=== PATIENT | male | born 1970 ===

== ENCOUNTER 2023-02-21 10:05 | Outpatient (AMB) | payer OTHER, SELFPAY ==
--- NOTE | 2023-02-21 10:16 | MHC.PC.OV ---
Vital Signs 02/21/23 10:22 Height 5 ft 10 in Weight 178 lb 6 oz BMI 25.6 BP 110/70 Blood Pressure Location Lt brachial Position Sitting Pulse 78 Pulse Source Pulse Oximeter Pulse Oximetry (%) 94 Oxygen Delivery Method Room Air Intake Visit Reasons: New patient-diabetes,depression,anxiety Intake Note: Patient is a new patient here to establish care for Diabetes, Glaucoma, Anger Issue, Depression, Anxiety, Cholesterol, Chronic Bilateral knee pain and Chronic back pain . Transferring care from [facility] ([place], [place]). Medical records have not been requested and have not received. Photographic Intelligence Officer Required: No Tool Radial Drill Press Set Up Operator: Not Required per policy Accompanied by: Self / Same As Patient Allergies No Known Allergies Allergy (Verified 02/21/23 10:42) Tobacco use date assessed: 02/21/23 Dental Screening Dental Screen Date: 02/21/23 Did you have a dental visit in the last 12 months?: No Did you have a dental problem in the last 6 months where you did not have access to dental care?: No Was dental information given to patient?: No HPI HPI Comments History of Present Illness Details 52-year-old male new patient presents today to establish care past medical history significant for type 2 diabetes mellitus, generalized anxiety disorder, depression, chronic lumbar back pain and chronic bilateral knee pain. Patient reports was previously followed by Psychiatry for anxiety depression and history anger problems. Patient states he was on medication in the past however he cannot remember the name of these and states he discontinued taking any medication for and June. Patient also reports symptoms of polyuria and polydipsia will obtain complete fasting blood work to further hemoglobin A1c and fasting glucose. Patient states he ambulates with a Rollator walker and cane. Patient states his Rollator walker broke while he was moving and is requesting a prescription for this. Prescription for related walker handed to patient in office today. Patient reports previously using the freestyle Ambika meter however his broke and requesting new prescription for this Patient reports had colon cm reports that was unremarkable. 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 Patient completed medical release for to obtain previous medical records from PCP in [place]. [facility] Medical History (Updated 02/21/23 @ 13:15 by ANITA Duong) Suicidal ideation Excessive anger Glaucoma GERD (gastroesophageal reflux disease) Surgical History No pertinent past surgical history Family History (Updated 02/21/23 @ 10:50 by ANITA Duong) Father Diabetes Prostate cancer Mother History of stroke Diabetes Social History (Updated 02/21/23 @ 10:50 by ANITA Duong) Housing: Apartment Alcohol intake: current Alcohol intake frequency: a few times a week Alcohol type: beer Patient Tobacco Use Status: Current everyday Tobacco user (chewing tobacco) e-Cigarette/Vaping Use: Never Used Second Hand Smoke Exposure: Yes service: No Current occupational status: disabled Cognitive needs: Yes (wheelchair, cane) Hearing needs: No Vision needs: Yes (glasses) Questionnaire PHQ-9 Over the last 2 weeks, how often have you been bothered by any of the following problems? 1. Little interest or pleasure in doing things: not at all 2. Feeling down, depressed, or hopeless: more than half the days 3. Trouble falling or staying asleep, or sleeping too much: nearly every day (falling asleep and staying asleep) 4. Feeling tired or having little energy: nearly every day 5. Poor appetite or overeating: several days 6. Feeling bad about yourself - or that you are a failure or have let yourself or your family down: nearly every day 7. Trouble concentrating on things, such as reading the newspaper or watching television: nearly every day 8. Moving or speaking so slowly that other people could have noticed. Or the opposite - being so fidgety or restless that you have been moving around a lot more than usual: not at all 9. Thoughts that you would be better off or of hurting yourself in some way: not at all Total score: 15 Depression Screening Interpretation: Positive (referral entered to psych ) Depression Screening Done: Yes 19452 - PHQ-9 Billing: Yes Source: Developed by Drs. Zi Hidalgo, Nishi Samuel, Dariusz Robbins and colleagues, with an educational radha from [employer]. Thrive Questionnaire Date Thrive assessed: 02/21/23 I am a: Patient What is your living situation today?: I have a steady place to live Within the past 12 months, did the food you bought not last and you didn't have the money to get more?: Never true Within the past 12 months, did you worry whether your food would run out before you got money to buy more?: Never true Do you have trouble paying for medicines?: Yes Do you have trouble getting transportation to medical appointments?: Yes Do you have trouble paying your heating and electricity bill?: No Do you have trouble taking care of your child, family member or friend?: No Do you have trouble with day-to-day activities such as bathing, preparing meals, shopping, managing finances, etc.?: No Are you currently unemployed and looking for a job?: No Are you interested in more education?: No Please select the resources that you would like help with: Paying for medicine and Transportation Currently or been in a relationship where the following occur: no concerns reported AUDIT C Alcohol Use Questionnaire (AUDIT-C) 1. How often do you have a drink containing alcohol?: Never Total Score: 0 TEMI-7 AMB Questionnaire TEMI-7 Date TEMI - 7 assessed: 02/21/23 Feeling nervous, anxious, or on edge: 1 = Several days Not being able to stop or control worryin = Nearly every day Worrying too much about different things: 3 = Nearly every day Trouble relaxin = Nearly every day Being so restless that it is hard to sit still: 2 = More than half the days Becoming easily annoyed or irritable: 3 = Nearly every day Feeling afraid as if something awful might happen: 1 = Several days Total TEMI-7 score (0-4 normal; 5-9 mild; 10-14 moderate; 15-21 severe): 16 Source: Developed by Drs. Zi Hidalgo, Nishi Samuel, Dariusz Robbins and colleagues, with an educational radha from [employer]. TEMI-7 Assessment Billing TEMI-7 Assessment Tool: TEMI-7 Assessment 04307 Review of Systems Const Denies chills, Denies fatigue, Denies fever(s) and Denies poor appetite Eyes Denies no additional complaints ENT Reports Normal hearing present Card Denies chest pain, Denies syncope, Denies rapid heart rate and Denies dyspnea Resp Denies cough and Denies dyspnea GI Denies change in stool character, Denies constipation, Denies diarrhea, Denies nausea and Denies vomiting Denies dysuria, Denies urinary frequency and Denies urinary urgency Neuro Reports Normal hearing present, Denies confusion and Denies syncope Psych Denies confusion Endo Denies fatigue Physical exam (Primary Care) Vital Signs: Last Vital Signs Pulse 78 02/21/23 10:22 BP 110/70 02/21/23 10:22 Pulse Ox 94 02/21/23 10:22 Oxygen Delivery Method Room Air 02/21/23 10:22 BMI result Body Mass Index 25.6 Tobacco/Smoking Status: Tobacco use Status Tobacco use date assessed 02/21/23 02/21/23 10:19 Patient Tobacco Use Status Current everyday Tobacco ( 02/21/23 10:50 chewing tobacco) e-Cigarette/Vaping Use Never Used 02/21/23 10:50 PHQ-9: PHQ-9 Score PHQ-9: Total score 15 02/21/23 10:52 Depression Screening Interpretation: Positive (referral entered to psych ) Thrive Assessment: Date of Thrive Assessment Date Thrive assessed 02/21/23 02/21/23 10:19 Currently or been in a relationship where the following occur: no concerns reported Const General: No confusion Orientation/consciousness: No confusion HENMT Head: Yes normocephalic and Yes atraumatic Eyes Conjunctivae: conjunctivae normal Chest Chest palpation & inspection: normal inspection of the chest Resp Effort & Inspection: normal respiratory effort Auscultation: clear to auscultation bilaterally, no crackles, no rhonchi and no wheezes Cardio Rate: regular rate Rhythm: regular rhythm Heart sounds: S1 normal heart sound present and S2 normal heart sound present GI Inspection: Yes normal to inspection Neuro General: No confusion Cranial nerves: Yes Normal hearing present Extrem General: No edema Assessment and Plan Assessment & Plan (1) Type 2 diabetes mellitus: Code(s): E11.9 - Type 2 diabetes mellitus without complications Plan: Continue on metformin 100 mg b.i.d., insulin lispro 6 units daily and Lantus 40 units BID. hgb A1c and fasting glucose ordered. (2) Polyuria: Code(s): R35.89 - Other polyuria (3) Generalized anxiety disorder: Code(s): F41.1 - Generalized anxiety disorder Plan: Referral entered to Psychiatry. (4) Depression: Code(s): F32.A - Depression, unspecified Plan Follow-up in 3 months for complete physical exam. Orders: Orders Comprehensive [place]. Panel Fast Today E11.9 - Type 2 diabetes mellitus without complications TSH reflex Free T4 Today Z13.29 - Encounter for screening for other suspected endocrine disorder Hemoglobin A1c Today E11.9 - Type 2 diabetes mellitus without complications PSA,Total (Free>4and<10) Today Z12.5 - Encounter for screening for malignant neoplasm of prostate UA CC w/rflx Micro + Cult Today R35.89 - Other polyuria Complete Blood Count Auto Diff Today Z13.0 - Encounter for screening for diseases of the blood and blood-forming organs and certain disorders involving the immune mechanism Lipid Panel Today Z13.220 - Encounter for screening for lipoid disorders Referrals Ophthalmology Referral H40.9 - Unspecified glaucoma Psychiatry Referral F32.A - Depression, unspecified, F41.1 - Generalized anxiety disorder, R45.4 - Irritability and anger Medications: New flash glucose scanning reader (FreeStyle Ambika 2 [place]) As directed 1 ea 0RF flash glucose sensor (FreeStyle Ambika 2 Sensor kit) As directed 1 ea 10RF miscellaneous medical supply Rollator walker 1 ea miscellaneous ONCE 1 ea 0RF G89.29 - Other chronic pain, M25.569 - Pain in unspecified knee, M54.50 - Low back pain, unspecified Coding Level of Care Code New Pt Level 4 (98692) Diagnoses Type 2 diabetes mellitus E11.9 Polyuria R35.89 Generalized anxiety disorder F41.1 Depression F32.A Additional Codes TEMI-7 Assessment Billing - TEMI-7 Assessment Tool: TEMI-7 Assessment 00862 ([id number])
[2023-02-21 10:22] VITALS: BP 110/70; PULSE 78; O2SAT 94; BMI 25.6
== END 2023-02-21 11:11 | disposition home or self-care (01) ==
PROVIDERS: PCP Nurse Practitioner Family; Visit Provider Nurse Practitioner Family
DX: E11.9 Type 2 diabetes mellitus without complications (principal); R35.89 Other polyuria; F41.1 Generalized anxiety disorder; F32.A Depression, unspecified
CPT/HCPCS: 96127; 99204

== ENCOUNTER 2023-02-22 10:41 | Outpatient (REF) | payer OTHER, SELFPAY ==
[2023-02-22 11:06] LABS: MANUAL DIFF FLAG NO
[2023-02-22 11:24] LABS: Appearance Urine Clear; Color Urine Yellow; Glucose Urine UA >=1000 mg/dL (Negative); Leukocyte Esterase Urine Negative (Negative); Nitrite Urine Negative (Negative); PH 5.5 (5.0-9.0); Specific Gravity - Urine >= 1.030 (1.005-1.025); UMIC TRIGGER UACC YES; Urine Blood Negative (Negative); Urine Ketones Trace mg/dL (Negative); Urine Protein Negative (Neg-Trace)
[2023-02-22 11:26] LABS: Basophils Percent Auto 0.4 % (0-2); Eosinophils Absolute Auto 0.2 X10*3/uL (0.0-0.4); Hematocrit 45.1 % (42.0-52.0); Hemoglobin 15.7 g/dl (14.0-18.0); Lymphocytes Absolute Auto 2.3 X10*3/uL (1.2-4.9); Mean Corpuscular HGB Conc 34.8 g/dl (31.0-36.0); Mean Corpuscular Hemoglobin 29.4 pg (27.0-33.0); Mean Corpuscular Volume 84.5 fL (80.0-98.0); Mean Platelet Volume 10.4 fL (9.4-12.4); Monocytes Absolute Auto 0.4 X10*3/uL (0.1-1.2); Monocytes Percent Auto 6.3 % (2-11); Neutrophils Absolute Auto 2.6 x10*3/uL (2.0-8.3); Neutrophils Percent Auto 47.3 % (45-73); Platelet Count 244 X10*3/uL (160-400); Red Blood Count 5.34 X10*6/uL (4.60-5.80); White Blood Count 5.5 X10*3/uL (4.8-10.8)
[2023-02-22 11:33] LABS: Bacteria Urine None Seen (None Seen); Hyaline Casts Urine 0-2 /LPF (0-2); RBC Urine 0-2 /HPF (0-2); Squamous Epithelial Cell Urine 0-2 /HPF (0-2); WBC Urine 0-5 /HPF (0-5)
[2023-02-22 11:53] LABS: Hemoglobin A1c % > 14.0 % (<6.0)
[2023-02-22 14:25] LABS: Alanine Aminotransferase 15 U/L (0-40); Albumin Level 4.3 g/dL (3.5-5.0); Alkaline Phosphatase 125 U/L (39-117); Anion Gap 15 (12-20); Aspartate Amino Transferase 15 U/L (5-37); Bilirubin Total 0.5 mg/dL (0.0-1.0); Blood Urea Nitrogen 11 mg/dL (9-16); Calcium 9.7 mg/dL (8.4-10.2); Carbon Dioxide 25 mmol/L (22-29); Chloride 102 mmol/L (96-108); Cholesterol 260 mg/dL (<200); Estimated Glomerular Filt Rate > 60; Glucose Fasting 329 mg/dL (60-99); HDL Cholesterol 55 mg/dL (>40); LDL Cholesterol Calculated 165 mg/dL (<100); Sodium 138 mmol/L (135-145); Total Protein 7.5 g/dL (6.5-8.0); Triglycerides 203 mg/dL (<150)
[2023-02-22 14:34] LABS: TSH reflex Free T4 0.89 uIU/mL (0.32-4.0)
[2023-02-22 14:36] LABS: PSA,Total (Free>4and<10) 0.71 ng/mL (0.00-4.00)
== END 2023-02-22 10:42 | disposition home or self-care (01) ==
LOC: HO.LAB 10:41
PROVIDERS: PCP Nurse Practitioner Family; Visit Provider Nurse Practitioner Family
DX: Z13.29 Encounter for screening for other suspected endocrine disorder (principal); Z12.5 Encounter for screening for malignant neoplasm of prostate; Z13.0 Encounter for screening for diseases of the blood and blood-forming organs and certain disorders involving the immune mechanism; Z13.220 Encounter for screening for lipoid disorders; E11.9 Type 2 diabetes mellitus without complications
CPT/HCPCS: 36415; 80053; 80061; 81001; 83036; 84153; 84443; 85025

== ENCOUNTER 2023-03-21 10:58 | Emergency (ER) | payer OTHER, SELFPAY ==
--- NOTE | ~2023-03-21 | CT_ITS ---
EXAMINATION: CT HEAD WITHOUT CONTRAST CLINICAL INFORMATION: Headache and dizziness COMPARISON: None available. TECHNIQUE: Contiguous axial imaging was performed from the skull base to vertex without intravenous administration of contrast. This CT examination was performed using dose optimization techniques as appropriate, variously including the following: *Automated exposure control *Adjustment of mA and/or kV according to patient size (this includes techniques or standardized protocols for targeted exams where dose is matched to indication/reason for exam; i.e. extremities or head) *Use of iterative reconstruction technique DLP: 661.0 mGy-cm FINDINGS: There is no evidence of acute intracranial hemorrhage or territorial infarction. Smith-white matter differentiation is preserved. No abnormal mass effect or midline shift. No extra-axial fluid collections. Scattered periventricular and deep white matter hypoattenuation consistent with mild microangiopathy. The ventricles and sulcal spaces are proportional without hydrocephalus. There is rhaj-ut-qvhubqlz volume loss with proportional prominence of the ventricles and sulcal spaces. No hydrocephalus. No acute osseous or soft tissue abnormalities. The mastoid air cells and visualized portions of the paranasal sinuses are well aerated. CT/CT head/brain wo IV con IMPRESSION: No acute intracranial pathology.
[2023-03-21 11:09] VITALS: BP 132/93; PULSE 73; RESP 18; TEMP 36.6; O2SAT 98; BMI 24.8
--- NOTE | 2023-03-21 11:10 | ED.GENADULT ---
HPI - General Adult General Chief complaint: Dizziness Stated complaint: diabetic, low sugars, nausea, hx of heart attacks Time Seen by Provider: 03/21/23 11:39 Source: patient Mode of arrival: ambulatory History of Present Illness HPI narrative: Patient with a history of stroke, has an episode of room spinning with nausea. Related Data Home Medications Medication Instructions Recorded Confirmed insulin glargine 100 unit/mL (3 40 unit subcut BID 02/21/23 mL) subcutaneous pen (Lantus Solostar U-100 Insulin) insulin lispro 100 unit/mL 6 unit subcut DAILY 02/21/23 subcutaneous pen Previous Rx's Medication Instructions Recorded miscellaneous medical supply 1 ea miscellaneous ONCE #1 ea 02/21/23 metformin 500 mg tablet 1,000 mg (2 x 500 mg) PO BID #60 02/24/23 tabs flash glucose scanning reader #1 ea 03/03/23 (FreeStyle Ambika 2 [place]) flash glucose sensor (FreeStyle #1 ea 03/03/23 Ambika 2 Sensor kit) cane #1 ea 03/19/23 walker (Ultra-Light Rollator misc) #1 ea 03/19/23 meclizine 25 mg tablet 25 mg PO TID #20 tabs 03/21/23 Allergies Allergy/AdvReac Type Severity Reaction Status Date / Time No Known Allergies Allergy Verified 03/21/23 11:08 Review of Systems Neurologic: Denies Sensory deficit (Neuro) [facility] Past Medical History Medical History (Updated 03/21/23 @ 16:04 by Rolando Weinberg MD) Suicidal ideation Excessive anger Glaucoma GERD (gastroesophageal reflux disease) Surgical History No pertinent past surgical history Family History Family History (Updated 02/21/23 @ 10:50 by ANITA Duong) Father Diabetes Prostate cancer Mother History of stroke Diabetes Social History Social History (Updated 02/21/23 @ 10:50 by ANITA Duong) Housing: Apartment Alcohol intake: current Alcohol intake frequency: holidays/special occasions only Alcohol type: beer Patient Tobacco Use Status: Current everyday Tobacco user (chewing tobacco) Smoked in Last 30 Days: No e-Cigarette/Vaping Use: Never Used Second Hand Smoke Exposure: Yes Use of substances other than those prescribed or required for medical reasons: No Advance Directives: No Advance Directives Information Provided: Yes service: No Current occupational status: disabled Cognitive needs: Yes (wheelchair, cane) Hearing needs: No Vision needs: Yes (glasses) Physical Exam ED Vital Signs: Vital Signs - 24 hr 03/21/23 11:09 03/21/23 12:01 03/21/23 14:35 Temperature 97.8 F Pulse Rate 73 67 55 Respiratory Rate 18 20 18 Blood Pressure 132/93 H 128/80 115/76 Pulse Oximetry 98 95 98 Oxygen Delivery Method Room Air Room Air Room Air BMI result Body Mass Index 24.8 Const General: healthy appearing Nutritional Appearance: average body habitus Orientation/consciousness: oriented to person and patient oriented x3 Limitations: no limitations HENMT Other: Tms normal bilaterally Head: Yes normal to inspection Ears: external ears normal General nose exam: Normal external nose present Mouth: Normal oral and palatal mucosa present and oropharynx normal Throat: Yes posterior oropharynx normal Eyes Other: nystagmus on Right latera gaze only with symptoms General: appearance normal, both eyes and all related structures Neck Neck: Yes normal visual inspection Chest Chest palpation & inspection: normal inspection of the chest Resp Auscultation: clear to auscultation bilaterally Cardio Jugular venous distension: no JVD Rate: regular rate Rhythm: regular rhythm Heart sounds: S1 normal heart sound present and S2 normal heart sound present GI Inspection: Yes normal to inspection Palpation (GI): Soft to palpation, nontender and No hepatosplenomegaly present Auscultation: normal bowel sounds General: Yes no CVA tenderness Back/Spine/Pelvis Back: no CVA tenderness Skin General skin exam: no rashes or lesions noted Neuro General: oriented to person and patient oriented x3 Cranial nerves: Yes CN's II-XII intact bilaterally Motor exam (neuro): 5/5 motor strength present throughout Sensory Exam: No Sensory deficit (Neuro) Extrem General: Yes normal to inspection Psych Appearance: grossly normal Course Course Course Narrative: This is an RME: Additional HPI, ROS, PE not included below will be deferred to primary provider. Patient is a 52 year old male who presents to the ED for evluation of dizziness. Reports he went to sleep at 2300, asymptomatic, awoke at 0300 with dizziness, feeling unsteady and having room spinning sensation that is worse with head movement. Reports diffuse frontal headache, baseline blurred vision due to glaucoma (unchanged), nausea, vomiting, upper chest pain. Denies fevers, chills, neck pain, SOB, fall or injury Plan: labs, EKG, POC glucose, CT head Reevaluation(s) Reevaluation #1: Patient with vertigo, negative head CT, elevated glucose, will give insulin, hydrate and dc home Time: 13:58 Medications Administered Discontinued Medications Generic Name Dose Route Start Last Admin Trade Name Waqas PRN Reason Stop Dose Admin Sodium Chloride 1,000 mls @ 500 mls/hr 03/21/23 14:00 03/21/23 14:34 Ns IVCONT 03/21/23 15:59 500 mls/hr .Q2H CHASE Administration Insulin Human Lispro 10 unit 03/21/23 13:45 03/21/23 14:28 Insulin Lispro 100 Unit/Ml 3 Ml Vial SUBCUT 03/21/23 13:46 10 unit ONCE ONE Administration Meclizine HCl 50 mg 03/21/23 11:47 03/21/23 12:03 Meclizine Hcl 25 Mg Tablet PO 03/21/23 11:48 50 mg ONCE ONE Administration Medical Decision Making Differential Diagnosis Differential Diagnoses: The differential diagnosis associated with the presentation includes (CVA, vertigo, brain tumor, cerebral bleed) Admission/Observation Consideration of admission/observation: Escalation of care including admission/observation considered (upon arrival patient was considered for admission) Lab Data MDM Lab Attestation statement: I reviewed the patient's lab results. (elevated urine, concentrated urine) 03/21/23 12:29 03/21/23 12:29 Labs: Lab Results 03/21/23 03/21/23 03/21/23 Range/Units 12:07 12:24 12:25 WBC (4.8-10.8) X10*3/uL RBC (4.60-5.80) X10*6/uL Hgb (14.0-18.0) g/dl Hct (42.0-52.0) % MCV (80.0-98.0) fL MCH (27.0-33.0) pg MCHC (31.0-36.0) g/dl RDW (11.0-16.0) % Plt Count (160-400) X10*3/uL MPV (9.4-12.4) fL Immature Gran % (Auto) (0.0-0.4) % Neut % (Auto) (45-73) % Lymph % (Auto) (20-40) % [place] % (Auto) (2-11) % Eos % (Auto) (0-4) % Baso % (Auto) (0-2) % Lymph # (Auto) (1.2-4.9) X10*3/uL [place] # (Auto) (0.1-1.2) X10*3/uL Eos # (Auto) (0.0-0.4) X10*3/uL Baso # (Auto) (0.0-0.2) X10*3/uL Abs Immat Gran (auto) (0.00-0.03) X10*3/uL Absolute Neuts (auto) (2.0-8.3) x10*3/uL Absolute Nucleated RBC (0.0-0.012) X10*3/uL Nucleated RBC % (auto) (0.0-0.2) /100WBC VBG pH (7.32-7.43) VBG pCO2 mmHg VBG pO2 mmHg VBG HCO3 (22-26) mmol/L VBG O2 Saturation % VBG Base Excess mmol/L Sodium (135-145) mmol/L Potassium (3.3-5.1) mmol/L Chloride (96-108) mmol/L Carbon Dioxide (22-29) mmol/L Anion Gap (12-20) BUN (9-16) mg/dL Creatinine (0.5-1.4) mg/dL Estim Creat Clear Calc Estimated GFR POC Glucose 323 H (60-115) mg/dL Random Glucose (60-115) mg/dL Calcium (8.4-10.2) mg/dL Total Bilirubin (0.0-1.0) mg/dL AST (5-37) U/L ALT (0-40) U/L Alkaline Phosphatase (39-117) U/L Troponin I High Sens (<3.5-35.0) ng/L Total Protein (6.5-8.0) g/dL Albumin (3.5-5.0) g/dL Lipase (8-78) U/L Beta-Hydroxybutyrate (0.02-0.27) mmol/L Urine Color Yellow Urine Appearance Clear Urine pH 6.0 (5.0-9.0) Ur Specific [place] >= 1.030 H (1.005-1.025) Urine Protein Negative (Neg-Trace) mg/dL Urine Glucose (UA) >=1000 H (Negative) mg/dL Urine Ketones 15 (Negative) mg/dL Urine Blood Negative (Negative) Urine Nitrite Negative (Negative) Ur Leukocyte Esterase Negative (Negative) Urine RBC 0-2 (0-2) /HPF Urine WBC 0-5 (0-5) /HPF Ur Squamous Epith Cells 0-2 (0-2) /HPF Urine Bacteria None Seen (None Seen) Hyaline Casts 0-2 (0-2) /LPF COVID-19 (SHARON) Negative (Negative) COVID-19 Clin Com See Note Influenza Type A (YASH) Negative (Negative) Influenza Type B (YASH) Negative (Negative) Influenza A & B Note See Note 03/21/23 03/21/23 03/21/23 Range/Units 12:29 12:32 15:00 WBC 6.7 (4.8-10.8) X10*3/uL RBC 5.53 (4.60-5.80) X10*6/uL Hgb 15.7 (14.0-18.0) g/dl Hct 44.7 (42.0-52.0) % MCV 80.8 (80.0-98.0) fL MCH 28.4 (27.0-33.0) pg MCHC 35.1 (31.0-36.0) g/dl RDW 11.8 (11.0-16.0) % Plt Count 254 (160-400) X10*3/uL MPV 9.6 (9.4-12.4) fL Immature Gran % (Auto) 0.1 (0.0-0.4) % Neut % (Auto) 68.3 (45-73) % Lymph % (Auto) 25.9 (20-40) % [place] % (Auto) 4.0 (2-11) % Eos % (Auto) 1.3 (0-4) % Baso % (Auto) 0.4 (0-2) % Lymph # (Auto) 1.7 (1.2-4.9) X10*3/uL [place] # (Auto) 0.3 (0.1-1.2) X10*3/uL Eos # (Auto) 0.1 (0.0-0.4) X10*3/uL Baso # (Auto) 0.0 (0.0-0.2) X10*3/uL Abs Immat Gran (auto) 0.01 (0.00-0.03) X10*3/uL Absolute Neuts (auto) 4.6 (2.0-8.3) x10*3/uL Absolute Nucleated RBC 0.000 (0.0-0.012) X10*3/uL Nucleated RBC % (auto) 0.0 (0.0-0.2) /100WBC VBG pH 7.38 (7.32-7.43) VBG pCO2 51 mmHg VBG pO2 36 mmHg VBG HCO3 30 H (22-26) mmol/L VBG O2 Saturation 59.0 % VBG Base Excess 4.5 mmol/L Sodium 135 (135-145) mmol/L Potassium 4.2 (3.3-5.1) mmol/L Chloride 101 (96-108) mmol/L Carbon Dioxide 30 H (22-29) mmol/L Anion Gap 8 L (12-20) BUN 9 (9-16) mg/dL Creatinine 0.86 (0.5-1.4) mg/dL Estim Creat Clear Calc 105.7 Estimated GFR > 60 POC Glucose (60-115) mg/dL Random Glucose 354 H* (60-115) mg/dL Calcium 9.6 (8.4-10.2) mg/dL Total Bilirubin 0.4 (0.0-1.0) mg/dL AST 14 (5-37) U/L ALT 14 (0-40) U/L Alkaline Phosphatase 133 H (39-117) U/L Troponin I High Sens 7.6 6.8 (<3.5-35.0) ng/L Total Protein 7.7 (6.5-8.0) g/dL Albumin 4.3 (3.5-5.0) g/dL Lipase 29 (8-78) U/L Beta-Hydroxybutyrate 0.29 H (0.02-0.27) mmol/L Urine Color Urine Appearance Urine pH (5.0-9.0) Ur Specific [place] (1.005-1.025) Urine Protein (Neg-Trace) mg/dL Urine Glucose (UA) (Negative) mg/dL Urine Ketones (Negative) mg/dL Urine Blood (Negative) Urine Nitrite (Negative) Ur Leukocyte Esterase (Negative) Urine RBC (0-2) /HPF Urine WBC (0-5) /HPF Ur Squamous Epith Cells (0-2) /HPF Urine Bacteria (None Seen) Hyaline Casts (0-2) /LPF COVID-19 (SHARON) (Negative) COVID-19 Clin Com Influenza Type A (YASH) (Negative) Influenza Type B (YASH) (Negative) Influenza A & B Note 03/21/23 Range/Units 15:53 WBC (4.8-10.8) X10*3/uL RBC (4.60-5.80) X10*6/uL Hgb (14.0-18.0) g/dl Hct (42.0-52.0) % MCV (80.0-98.0) fL MCH (27.0-33.0) pg MCHC (31.0-36.0) g/dl RDW (11.0-16.0) % Plt Count (160-400) X10*3/uL MPV (9.4-12.4) fL Immature Gran % (Auto) (0.0-0.4) % Neut % (Auto) (45-73) % Lymph % (Auto) (20-40) % [place] % (Auto) (2-11) % Eos % (Auto) (0-4) % Baso % (Auto) (0-2) % Lymph # (Auto) (1.2-4.9) X10*3/uL [place] # (Auto) (0.1-1.2) X10*3/uL Eos # (Auto) (0.0-0.4) X10*3/uL Baso # (Auto) (0.0-0.2) X10*3/uL Abs Immat Gran (auto) (0.00-0.03) X10*3/uL Absolute Neuts (auto) (2.0-8.3) x10*3/uL Absolute Nucleated RBC (0.0-0.012) X10*3/uL Nucleated RBC % (auto) (0.0-0.2) /100WBC VBG pH (7.32-7.43) VBG pCO2 mmHg VBG pO2 mmHg VBG HCO3 (22-26) mmol/L VBG O2 Saturation % VBG Base Excess mmol/L Sodium (135-145) mmol/L Potassium (3.3-5.1) mmol/L Chloride (96-108) mmol/L Carbon Dioxide (22-29) mmol/L Anion Gap (12-20) BUN (9-16) mg/dL Creatinine (0.5-1.4) mg/dL Estim Creat Clear Calc Estimated GFR POC Glucose 216 H (60-115) mg/dL Random Glucose (60-115) mg/dL Calcium (8.4-10.2) mg/dL Total Bilirubin (0.0-1.0) mg/dL AST (5-37) U/L ALT (0-40) U/L Alkaline Phosphatase (39-117) U/L Troponin I High Sens (<3.5-35.0) ng/L Total Protein (6.5-8.0) g/dL Albumin (3.5-5.0) g/dL Lipase (8-78) U/L Beta-Hydroxybutyrate (0.02-0.27) mmol/L Urine Color Urine Appearance Urine pH (5.0-9.0) Ur Specific [place] (1.005-1.025) Urine Protein (Neg-Trace) mg/dL Urine Glucose (UA) (Negative) mg/dL Urine Ketones (Negative) mg/dL Urine Blood (Negative) Urine Nitrite (Negative) Ur Leukocyte Esterase (Negative) Urine RBC (0-2) /HPF Urine WBC (0-5) /HPF Ur Squamous Epith Cells (0-2) /HPF Urine Bacteria (None Seen) Hyaline Casts (0-2) /LPF COVID-19 (SHARON) (Negative) COVID-19 Clin Com Influenza Type A (YASH) (Negative) Influenza Type B (YASH) (Negative) Influenza A & B Note Independent Interpretation I performed an independent interpretation of an: EKG (sinus, rate of 60, slight st segment elevation inferiorly) and CT Scan (Brain: no bleed no mass) Radiology Impression Discussion of test interpretation with radiology: I have reviewed the radiologist's reading. (I agree) Independent Historian Clinical information obtained from an independent historian. History obtained from or confirmed by: Spouse Tests considered The following testing was considered but not selected: MRI considered but patient improved Chronic Conditions Patient?s care impacted by: Diabetes and Other (CVA) Discharge Plan Discharge Clinical Impression: Vertigo, Acute hyperglycemia Patient Disposition: Home, Self-Care Instructions: Vertigo (ED), Diabetic Hyperglycemia (ED) Prescriptions: New meclizine 25 mg tablet 25 mg PO TID Qty: 20 0RF No Action metformin 500 mg tablet 1,000 mg PO BID Qty: 60 3RF (DME) FreeStyle Ambika 2 [place] Misc See Rx Instructions .ROUTE .MEDSUPPLY Qty: 1 0RF Rx Instructions: As directed (DME) FreeStyle Ambika 2 Sensor Kit See Rx Instructions .ROUTE .MEDSUPPLY Qty: 1 10RF Rx Instructions: As directed (DME) cane Device See Rx Instructions .Route Qty: 1 0RF Rx Instructions: As directed (DME) Ultra-Light Rollator Misc See Rx Instructions .Route Qty: 1 0RF Rx Instructions: rollator walker with seat. insulin glargine [Lantus Solostar U-100 Insulin] 100 unit/mL (3 mL) insulin pen 40 unit subcut BID insulin lispro 100 unit/mL insulin pen 6 unit subcut DAILY miscellaneous medical supply Kit 1 ea miscellaneous ONCE Qty: 1 0RF Rx Instructions: Rollator walker Referrals: Physician,Unknown J [Primary Care Provider] - 5 days
--- NOTE | 2023-03-21 11:15 | ECG_ITS ---
Test Reason : DIZZINESS Blood Pressure : / mmHG Vent. Rate : 061 BPM Atrial Rate : 061 BPM P-R Int : 154 ms QRS Dur : 098 ms QT Int : 390 ms P-R-T Axes : 028 056 050 degrees QTc Int : 392 ms Normal sinus rhythm Low voltage QRS Intra-ventricular conduction delay ST elevation in Inferior leads Possible acute injury pattern Abnormal ECG No previous ECGs available Clinical Correlation Advised Referred By: Glenis Rich Electronically Signed By:OSVALDO RAMSEY MD
[2023-03-21 12:01] VITALS: BP 128/80; PULSE 67; RESP 20; O2SAT 95
[2023-03-21] MEDS: Meclizine HCl 25 MG TABLET 50 MG PO (12:03)
[2023-03-21 12:12] LABS: Glucose, Whole Blood 323 mg/dL (60-115)
--- NOTE | 2023-03-21 12:20 | PC.NURSE ---
pt is alert and oriented, skin appropriate for ethnicity, respirations even and unlabored, pt reports waking up around 0730am with dizziness-spinning in circles and some nausea, reports feeling so dizzy that he was walking into [employer] at home and now having pain in his right hip from hitting the [place]. all neuro intact at this time, no facial droop, speech is clear, hand grasp strong and equal, no visible hand drift.
[2023-03-21 12:35] LABS: MANUAL DIFF FLAG NO
[2023-03-21 12:38] LABS: Appearance Urine Clear; Color Urine Yellow; Glucose Urine UA >=1000 mg/dL (Negative); Leukocyte Esterase Urine Negative (Negative); Nitrite Urine Negative (Negative); Specific Gravity - Urine >= 1.030 (1.005-1.025); UMIC TRIGGER UACC YES; Urine Blood Negative (Negative); Urine Ketones 15 mg/dL (Negative); Urine Protein Negative (Neg-Trace)
[2023-03-21 12:39] LABS: Basophils Percent Auto 0.4 % (0-2); Eosinophils Absolute Auto 0.1 X10*3/uL (0.0-0.4); Eosinophils Percent Auto 1.3 % (0-4); Hematocrit 44.7 % (42.0-52.0); Hemoglobin 15.7 g/dl (14.0-18.0); Imm Gran Abs Auto 0.01 X10*3/uL (0.00-0.03); Imm Gran Pct Auto 0.1 % (0.0-0.4); Lymphocytes Absolute Auto 1.7 X10*3/uL (1.2-4.9); Lymphocytes Percent Auto 25.9 % (20-40); Mean Corpuscular HGB Conc 35.1 g/dl (31.0-36.0); Mean Corpuscular Hemoglobin 28.4 pg (27.0-33.0); Mean Corpuscular Volume 80.8 fL (80.0-98.0); Mean Platelet Volume 9.6 fL (9.4-12.4); Monocytes Absolute Auto 0.3 X10*3/uL (0.1-1.2); Neutrophils Absolute Auto 4.6 x10*3/uL (2.0-8.3); Neutrophils Percent Auto 68.3 % (45-73); Platelet Count 254 X10*3/uL (160-400); Red Blood Count 5.53 X10*6/uL (4.60-5.80); Red Cell Distribution Width 11.8 % (11.0-16.0); White Blood Count 6.7 X10*3/uL (4.8-10.8)
[2023-03-21 12:41] LABS: VBG Base Excess 4.5 mmol/L; VBG HCO3 30 mmol/L (22-26); VBG pCO2 51 mmHg; VBG pH 7.38 (7.32-7.43); VBG pO2 36 mmHg
[2023-03-21 12:43] LABS: Bacteria Urine None Seen (None Seen); Hyaline Casts Urine 0-2 /LPF (0-2); RBC Urine 0-2 /HPF (0-2); Squamous Epithelial Cell Urine 0-2 /HPF (0-2); WBC Urine 0-5 /HPF (0-5)
[2023-03-21 12:50] LABS: COVID-19 Test Negative (Negative); IDNOW Serial# BCCEAD1C
[2023-03-21 12:51] LABS: Venous Blood Gas Refer to POC result
[2023-03-21 12:51] LABS: Beta-Hydroxybutyrate 0.29 mmol/L (0.02-0.27)
[2023-03-21 12:52] LABS: IDNOW Serial# 9DB6401D; Influenza A Negative (Negative); Influenza B2 Negative (Negative)
[2023-03-21 12:56] LABS: Alanine Aminotransferase 14 U/L (0-40); Albumin Level 4.3 g/dL (3.5-5.0); Alkaline Phosphatase 133 U/L (39-117); Anion Gap 8 (12-20); Aspartate Amino Transferase 14 U/L (5-37); Bilirubin Total 0.4 mg/dL (0.0-1.0); Blood Urea Nitrogen 9 mg/dL (9-16); Calcium 9.6 mg/dL (8.4-10.2); Carbon Dioxide 30 mmol/L (22-29); Chloride 101 mmol/L (96-108); Creatinine Clr Calc Pharmacy 105.7; Estimated Glomerular Filt Rate > 60; Glucose Random 354 mg/dL (60-115); Lipase 29 U/L (8-78); Potassium 4.2 mmol/L (3.3-5.1); Sodium 135 mmol/L (135-145); Total Protein 7.7 g/dL (6.5-8.0)
[2023-03-21 12:59] LABS: Troponin-I High Sensitivity 7.6 ng/L (<3.5-35.0)
[2023-03-21] MEDS: Insulin Lispro 100 UNIT/ML 3 ML VIAL 10 UNIT SUBCUT (14:28)
[2023-03-21] MEDS: 0.9 % Sodium Chloride 1,000 ML 500 ML IVCONT (14:34)
[2023-03-21 14:35] VITALS: BP 115/76; PULSE 55; RESP 18; O2SAT 98
--- NOTE | 2023-03-21 14:44 | PC.NURSE ---
pt reports feeling better, denies dizziness at this time, vs stable
[2023-03-21 15:28] LABS: Troponin-I High Sensitivity 6.8 ng/L (<3.5-35.0)
[2023-03-21 15:57] LABS: Glucose, Whole Blood 216 mg/dL (60-115)
== END 2023-03-21 16:27 | disposition home or self-care (01) ==
PROVIDERS: Nurse Practitioner Family; Emergency Provider Emergency Medicine
DX: R42 Dizziness and giddiness (principal); R11.2 Nausea with vomiting, unspecified; R73.9 Hyperglycemia, unspecified; R51.9 Headache, unspecified; R94.31 Abnormal electrocardiogram [ECG] [EKG]; Z11.52 Encounter for screening for COVID-19; Z20.822 Contact with and (suspected) exposure to COVID-19; Z79.899 Other long term (current) drug therapy
CPT/HCPCS: 36415; 70450; 80053; 81001; 82010; 82803; 82947; 83690; 84484; 85025; 87502; 87635; 93005; 99284; 99285

== ENCOUNTER 2023-04-10 08:15 | Outpatient (AMB) | payer OTHER, SELFPAY ==
[2023-04-10 08:33] VITALS: BP 118/80; PULSE 88; O2SAT 98; BMI 25.2
--- NOTE | 2023-04-10 08:33 | A.OFFPC_ITS ---
Vital Signs 04/10/23 08:33 Height 5 ft 11 in Weight 181 lb BMI 25.2 BP 118/80 Blood Pressure Location Lt brachial Position Sitting Pulse 88 Pulse Source Pulse Oximeter Pulse Oximetry (%) 98 Oxygen Delivery Method Room Air Intake Visit Reasons: Bilateral wrist pain Mysql Developer Required: No Labor Utilization Superintendent: Not Required per policy Accompanied by: Self / Same As Patient Allergies No Known Allergies Allergy (Verified 04/10/23 08:34) Tobacco use date assessed: 02/21/23 Dental Screening Dental Screen Date: 04/10/23 Did you have a dental visit in the last 12 months?: Yes Did you have a dental problem in the last 6 months where you did not have access to dental care?: No Was dental information given to patient?: Patient has dentist HPI HPI Comments History of Present Illness Details 52-year-old male past medical history si gnificant for generalized anxiety disorder, depression, type 2 diabetes mellitus, chronic lumbar back, chronic knee pain patient reports history of arthritis. Bilateral knee x-rays ordered previously however I do not see the results this. Patient reminded to get previously ordered x-rays completed. Patient presents today for bilateral wrist pain for multiple years states he was previously prescribed wrist braces for this. Requesting new prescription for wrist braces. Patient states pain and bilateral wrist left greater than right. Reports numbness in the tips of fingers of left hand denies any numbness of right hand. Patient noted to have positive phalens test exam of left hand discussed further evaluation with EMG and nerve conduction studies for possible carpal tunnel syndrome. Patient dec lines further workup this time. Pain 5/10 stiffening. Patient reports takes sqfw-wzj-moqygwe Tylenol with relief of pain. Upon completion of this appointment patient reporting he is having memory c hanges and difficulty remembering certain things. Will refer patient to Neurology for further evaluation. [facility] Medical History Suicidal ideation Excessive anger Glaucoma GERD (gastroesophageal reflux disease) Surgical History No pertinent past surgical history Family History Father Diabetes Prostate cancer Mother History of stroke Diabetes Social History Housing: Apartment Alcohol intake: current Alcohol intake frequency: holidays/special occasions only Alcohol type: beer Patient Tobacco Use Status: Current everyday Tobacco user (chewing tobacco) e-Cigarette/Vaping Use: Never Used Second Hand Smoke Exposure: Yes service: No Current occupational status: disabled Cognitive needs: Yes (wheelchair, cane) Hearing needs: No Vision needs: Yes (glasses) Questionnaire Thrive Questionnaire Date Thrive assessed: 02/21/23 TEMI-7 AMB Questionnaire TEMI-7 Date TEMI - 7 assessed: 02/21/23 Source: Developed by Drs. Zi Hidalgo, Nishi Samuel, Dariusz Robbins and colleagues, with an educational radha from [employer]. Review of Systems Const Denies chills, Denies fatigue, Denies fever(s) and Denies poor appetite Eyes Denies no additional complaints ENT Reports Normal hearing present Card Denies chest pain, Denies syncope, Denies rapid heart rate and Denies dyspnea Resp Denies cough and Denies dyspnea GI Denies change in stool character, Denies constipation, Denies diarrhea, Denies nausea and Denies vomiting Denies dysuria, Denies urinary frequency and Denies urinary urgency Musc Reports arthralgias (Bilateral right wrist pain.) Neuro Reports Normal hearing present, Denies confusion and Denies syncope Psych Denies confusion Endo Denies fatigue Physical exam (Primary Care) Vital Signs: Last Vital Signs Pulse 88 04/10/23 08:33 BP 118/80 04/10/23 08:33 Pulse Ox 98 04/10/23 08:33 Oxygen Delivery Method Room Air 04/10/23 08:33 BMI result Body Mass Index 25.2 Tobacco/Smoking Status: Tobacco use Status Tobacco use date assessed 02/21/23 04/10/23 08:38 Patient Tobacco Use Status Current everyday Tobacco ( 04/10/23 08:38 chewing tobacco) e-Cigarette/Vaping Use Never Used 04/10/23 08:38 Thrive Assessment: Date of Thrive Assessment Date Thrive assessed 02/21/23 04/10/23 08:38 Const General: No confusion Orientation/consciousness: No confusion HENMT Head: Yes normocephalic and Yes atraumatic Eyes Conjunctivae: conjunctivae normal Chest Chest palpation & inspection: normal inspection of the chest Resp Effort & Inspection: normal respiratory effort Auscultation: clear to auscultation bilaterally, no crackles, no rhonchi and no wheezes Cardio Rate: regular rate Rhythm: regular rhythm Heart sounds: S1 normal heart sound present and S2 normal heart sound present GI Inspection: Yes normal to inspection Neuro General: No confusion Cranial nerves: Yes Normal hearing present Extrem General: No edema Assessment and Plan Assessment & Plan (1) Bilateral wrist pain: Code(s): M25.531 - Pain in right wrist; M25.532 - Pain in left wrist Plan: Patient requesting new prescription for bilateral wrist braces, prescription entered in to be faxed to medical supply store [address] as requested by patient. Given patient states bilateral wrist pain left greater than right with numbness and left finger tips and positive provocative testing recommended EMG and nerve conduction test for further evaluation of likely carpal tunnel. However patient declines at this time would like to proceed with conservative management with utilizing bilateral wrist braces and taking gzsh-clh-ofileoy Tylenol as needed for pain. (2) Type 2 diabetes mellitus: Code(s): E11.9 - Type 2 diabetes mellitus without complications Plan: Continue on current medications. (3) Memory changes: Code(s): R41.3 - Other amnesia Plan: Referral entered to Neurology. Orders: Referrals Neurology Referral R41.3 - Other amnesia Medications: New miscellaneous medical supply Bilateral wrist braces 1 ea miscellaneous ONCE 1 ea 0RF M25.531 - Pain in right wrist, M25.532 - Pain in left wrist insulin lispro 6 units (0.06 mL) subcut DAILY 15 mL 3RF E11.9 - Type 2 diabetes mellitus without complications pen needle, diabetic (Sure-Fine Pen [place]) As directed 50 ea 0RF miscellaneous medical supply Bilateral wrist braces 1 ea miscellaneous ONCE 1 ea 0RF M25.531 - Pain in right wrist, M25.532 - Pain in left wrist Coding Level of Care Code Est Pt Level 3 (73752) Diagnoses Bilateral wrist pain M25.531; M25.532 Type 2 diabetes mellitus E11.9 Memory changes R41.3
== END 2023-04-10 09:48 | disposition home or self-care (01) ==
PROVIDERS: PCP Nurse Practitioner Family; Visit Provider Nurse Practitioner Family
DX: M25.531 Pain in right wrist (principal); M25.532 Pain in left wrist; E11.9 Type 2 diabetes mellitus without complications; R41.3 Other amnesia
CPT/HCPCS: 99213

== ENCOUNTER 2023-04-10 09:06 | Outpatient (REF) | payer OTHER, SELFPAY ==
--- NOTE | ~2023-04-10 | XR_ITS ---
EXAMINATION: XR KNEE, RIGHT CLINICAL INFORMATION: Pain. COMPARISON: None available. TECHNIQUE: AP and lateral views of the right knee. FINDINGS: No fracture or joint effusion. Alignment is anatomic. Joint spaces are maintained. No abnormal soft tissue calcification. XR/XR knee LT 2V IMPRESSION: Normal right knee. EXAMINATION: XR KNEE, LEFT CLINICAL INFORMATION: Pain. COMPARISON: None available. TECHNIQUE: AP and lateral views of the left knee. FINDINGS: No fracture or joint effusion. Alignment is anatomic. Joint spaces are maintained. There is a tiny osteophyte seen at the upper articular surface of the patella. No abnormal soft tissue calcification. IMPRESSION: 1. Minimal osteoarthritic change is seen of the right patellofemoral compartment. 2. No right knee fracture, dislocation or joint effusion is seen.
--- NOTE | ~2023-04-10 | XR_ITS ---
EXAMINATION: XR LUMBOSACRAL SPINE CLINICAL INFORMATION: Lower back pain. COMPARISON: None available. TECHNIQUE: AP and lateral views of the lumbar spine and lateral view of the lumbosacral junction. FINDINGS: The vertebral bodies and posterior elements are normal. There is facet arthropathy at L5-S1. The disc spaces are preserved and the vertebral alignment is normal. There is mild anterior spondylosis at L3-L4, and moderate anterior spondylosis is seen at L4-L5. The paraspinal soft tissues are normal. XR/XR lumbar spine 2-3V IMPRESSION: 1. No acute fracture or spondylolisthesis is seen. 2. The lumbar disc spaces are well-maintained. 3. There is mild anterior spondylosis at L3-L4, and moderate anterior spondylosis is seen at L4-L5.
--- NOTE | ~2023-04-10 | XR_ITS ---
EXAMINATION: XR KNEE, RIGHT CLINICAL INFORMATION: Pain. COMPARISON: None available. TECHNIQUE: AP and lateral views of the right knee. FINDINGS: No fracture or joint effusion. Alignment is anatomic. Joint spaces are maintained. No abnormal soft tissue calcification. XR/XR knee RT 2V IMPRESSION: Normal right knee. EXAMINATION: XR KNEE, LEFT CLINICAL INFORMATION: Pain. COMPARISON: None available. TECHNIQUE: AP and lateral views of the left knee. FINDINGS: No fracture or joint effusion. Alignment is anatomic. Joint spaces are maintained. There is a tiny osteophyte seen at the upper articular surface of the patella. No abnormal soft tissue calcification. IMPRESSION: 1. Minimal osteoarthritic change is seen of the right patellofemoral compartment. 2. No right knee fracture, dislocation or joint effusion is seen.
== END 2023-04-10 09:07 | disposition home or self-care (01) ==
LOC: HO.XRAY 09:06
PROVIDERS: Visit Provider Nurse Practitioner Family
DX: M54.50 Low back pain, unspecified (principal); M25.561 Pain in right knee; M25.562 Pain in left knee; G89.29 Other chronic pain
CPT/HCPCS: 72100; 73560

== ENCOUNTER 2023-04-25 10:40 | Emergency (ER) | payer OTHER, SELFPAY ==
[2023-04-25 10:51] VITALS: BP 120/79; PULSE 94; RESP 20; TEMP 36.9; O2SAT 96; BMI 25.1
[2023-04-25 11:44] LABS: Influenza A PCR POSITIVE (Negative); Influenza B PCR NEGATIVE (Negative); Resp Syncy Virus RNA Qual PCR NEGATIVE (Negative); SARS COV2 PCR INHOUSE NEGATIVE (Negative)
--- NOTE | 2023-04-25 11:47 | ED.GENADULT ---
HPI - General Adult General Chief complaint: Upper Respiratory Symptoms Stated complaint: Fever Diff Breathing Time Seen by Provider: 04/25/23 11:48 Source: patient Mode of arrival: ambulatory Limitations: no limitations History of Present Illness HPI narrative: Patient is a 52 year old assigned male at with a history of glaucoma and chronic pain presenting to the emergency department today with a cough and body aches. Patient states that he has had a cough and body aches over the last 4 days. Patient denies any dizziness, lightheadedness, abdominal pain, nausea, vomiting, fever, chills, blurry vision, double vision, loss of vision, chest pain, difficulty breathing, shortness of breath, back pain, night sweats, pain with urination, increased urinary frequency, increased urinary urgency, blood in her urine or stool, syncope or a near syncopal episode, recent trauma or falls, bowel incontinence, bladder incontinence, bowel retention, bladder retention, or any other complaints at this time. Onset (ago): day(s) (4) Severity: mild Severity scale (1-10): 3 Relieving factors: none Exacerbating factors: none Associated symptoms: cough Treatments prior to arrival: none Related Data Home Medications Medication Instructions Recorded Confirmed insulin glargine 100 unit/mL (3 40 unit subcut BID 02/21/23 mL) subcutaneous pen (Lantus Solostar U-100 Insulin) Previous Rx's Medication Instructions Recorded miscellaneous medical supply 1 ea miscellaneous ONCE #1 ea 02/21/23 metformin 500 mg tablet 1,000 mg (2 x 500 mg) PO BID #60 02/24/23 tabs flash glucose scanning reader #1 ea 03/03/23 (FreeStyle Ambika 2 [place]) flash glucose sensor (FreeStyle #1 ea 03/03/23 Ambika 2 Sensor kit) cane #1 ea 03/19/23 walker (Ultra-Light Rollator misc) #1 ea 03/19/23 meclizine 25 mg tablet 25 mg PO TID #20 tabs 03/21/23 insulin lispro 100 unit/mL 6 unit (0.06 mL) subcut DAILY #15 04/10/23 subcutaneous pen mL miscellaneous medical supply 1 ea miscellaneous ONCE #1 ea 04/10/23 pen needle, diabetic 31 gauge x #50 ea 04/10/23/16 (Sure-Fine Pen [place]) Allergies Allergy/AdvReac Type Severity Reaction Status Date / Time No Known Allergies Allergy Verified 04/10/23 08:34 Review of Systems Constitutional: Constitutional: Reports no additional constitutional complaints, Reports body ache(s), Denies chills, Denies fever(s) and Denies night sweats Eyes: Eyes: Reports no additional eye complaints, Denies blurry vision, Denies change in vision, Denies diplopia, Denies eye discharge, Denies loss of vision and Denies eye pain ENT: Denies dizziness Cardiovascular: Cardiovascular: Reports no additional cardiovascular complaints, Denies chest pain, Denies lightheadedness, Denies Loss of Consciousness and Denies dyspnea Respiratory: Respiratory: Reports no additional respiratory complaints, Reports cough and Denies dyspnea Gastrointestinal: Gastrointestinal: Reports no additional gastrointestinal complaints, Denies abdominal pain, Denies melena, Denies hematochezia, Denies change in bowel habits and Denies change in stool character Genitourinary: Genitourinary: Reports no additional male genitourinary complaints, Denies hematuria, Denies oliguria, Denies difficulty urinating, Denies dysuria, Denies urinary frequency, Denies urinary hesitancy, Denies urinary incontinence and Denies urinary urgency Musculoskeletal: Musculoskeletal: Reports no additional musculoskeletal complaints, Denies numbness and Denies tingling Neurologic: Denies dizziness, Denies loss of vision, Denies numbness and Denies tingling Psychiatric: Psychiatric: Reports no additional psychiatric complaints Endocrine: Endocrine: Reports no additional endocrine complaints Hematologic/Lymphatic: Hematologic/Lymphatic: Reports no additional hematologic/lymphatic complaints Allergic/Immunologic: Allergic/Immunologic: Reports no additional allergic/immunologic complaints FOR[facility]LY [facility], [facility] Past Medical History Attestation statement: The following information was validated with the patient. Source: old records reviewed and nursing notes reviewed Medical History Bilateral wrist pain Polyuria Suicidal ideation Excessive anger Glaucoma GERD (gastroesophageal reflux disease) Surgical History No pertinent past surgical history Family History Family History Father Diabetes Prostate cancer Mother History of stroke Diabetes Social History Social History (Reviewed 04/25/23 @ 12:07 by ALPHONSE Nash Housing: Apartment Alcohol intake: current Alcohol intake frequency: holidays/special occasions only Alcohol type: beer Patient Tobacco Use Status: Current everyday Tobacco user (chewing tobacco) e-Cigarette/Vaping Use: Never Used Second Hand Smoke Exposure: Yes Advance Directives: No Advance Directives Information Provided: No service: No Current occupational status: disabled Cognitive needs: Yes (wheelchair, cane) Hearing needs: No Vision needs: Yes (glasses) Physical Exam ED Vital Signs: Vital Signs - 24 hr 04/25/23 10:51 Temperature 98.4 F Pulse Rate 94 Respiratory Rate 20 Blood Pressure 120/79 Pulse Oximetry 96 Oxygen Delivery Method Room Air BMI result Body Mass Index 25.1 Const General: cooperative, no acute distress, alert and awake Nutritional Appearance: well nourished Orientation/consciousness: patient oriented x3 Limitations: no limitations HENMT Head: Yes normal to inspection and Yes atraumatic Ears: hearing grossly normal bilaterally and external ears normal General nose exam: Normal external nose present, no nasal discharge noted and no epistaxis Face and sinus: Yes normal facial exam, No abrasion and No laceration Mouth: Normal oral and palatal mucosa present, no drooling and no muffled voice Eyes General: appearance normal, both eyes and all related structures Periorbital: periorbital findings normal Eyelids: Yes eyelids normal Conjunctivae: conjunctivae normal Pupils: Equal, round and reactive pupils present EOM: EOMs intact bilaterally Neck Neck: Yes normal visual inspection, Yes full ROM and Yes no lymphadenopathy Chest Chest palpation & inspection: normal inspection of the chest Resp Effort & Inspection: normal respiratory effort and able to speak in complete sentences GI Inspection: Yes normal to inspection Neuro General: patient oriented x3 and moves all extremities Cranial nerves: Yes Equal, round and reactive pupils present Cognition (Neuro): normal cognition Motor exam (neuro): 5/5 motor strength present throughout Sensory Exam: Normal double simultaneous stimulation for sensation Coordination: [id number] test normal Extrem General: Yes normal to inspection, Yes full ROM and Yes capillary refill normal Psych Appearance: grossly normal Mental Status: mental status grossly normal Affect: normal affect Attitude: cooperative Thought process: Normal thought process present Thought content: Normal thought content present Insight: Good insight present (Psych) Medical Decision Making Medical Decision Making MDM Narrative: Patient is a 52 year old assigned male at with a history of glaucoma and chronic pain presenting to the emergency department today with a cough and body aches. Patient's physical exam was unremarkable. Patient's COVID-19 and RSV tests were negative. Patient is positive for influenza. I explained my physical exam findings as well as all test results to the patient. I answered all questions asked by the patient. I stressed the importance of the patient taking his medication as prescribed. I stressed the importance of the patient following up with his primary care provider. I stressed the importance of the patient returning to the emergency department immediately if his symptoms were to worsen or if he were to develop any dizziness, shortness of breath, difficulty breathing, chest pain, blurry vision, loss of vision, nausea, vomiting, abdominal pain, fever, chills, back pain, or any other complaints. Patient verbalized agreement and understanding with this treatment plan and discharge. Differential Diagnosis Differential Diagnoses: The differential diagnosis associated with the presentation includes Influenza COVID-[address] [facility] Lab Attestation statement: I reviewed the patient's lab results. My interpretation of these results are in the [facility] Rationale portion of this note. Labs: Lab Results 04/25/23 Range/Units 11:01 Influenza Type A (PCR) POSITIVE A (Negative) Influenza Type B (PCR) NEGATIVE (Negative) RSV RNA Qual (PCR) NEGATIVE (Negative) SARS-CoV-2 RNA (RT-PCR) NEGATIVE (Negative) Discharge Plan Discharge Clinical Impression: Influenza Patient Disposition: Home, Self-Care Instructions: Influenza (DC) Additional Instructions: Follow up with your primary care provider. Return to the emergency department immediately if your symptoms worsen or if you develop any dizziness, shortness of breath, difficulty breathing, chest pain, blurry vision, loss of vision, nausea, vomiting, abdominal pain, fever, chills, back pain, or any other complaints. Prescriptions: No Action metformin 500 mg tablet 1,000 mg PO BID Qty: 60 3RF (DME) FreeStyle Ambika 2 [place] Misc See Rx Instructions .ROUTE .MEDSUPPLY Qty: 1 0RF Rx Instructions: As directed (DME) FreeStyle Ambika 2 Sensor Kit See Rx Instructions .ROUTE .MEDSUPPLY Qty: 1 10RF Rx Instructions: As directed (DME) cane Device See Rx Instructions .Route Qty: 1 0RF Rx Instructions: As directed (DME) Ultra-Light Rollator Misc See Rx Instructions .Route Qty: 1 0RF Rx Instructions: rollator walker with seat. meclizine 25 mg tablet 25 mg PO TID Qty: 20 0RF insulin glargine [Lantus Solostar U-100 Insulin] 100 unit/mL (3 mL) insulin pen 40 unit subcut BID miscellaneous medical supply Kit 1 ea miscellaneous ONCE Qty: 1 0RF Rx Instructions: Rollator walker insulin lispro 100 unit/mL insulin pen 6 unit subcut DAILY Qty: 15 3RF (DME) pen needle, diabetic [Sure-Fine Pen [place]] 31 gauge x 3/16 needle See Rx Instructions .ROUTE .MEDSUPPLY Qty: 50 0RF Rx Instructions: As directed miscellaneous medical supply Kit 1 ea miscellaneous ONCE Qty: 1 0RF Rx Instructions: Bilateral wrist braces Referrals: Marquita Dial FNP [Primary Care Provider] - Stand Alone Forms: Work/School Release Interventions: ED Discharge Assessment Last Done: 04/25/23 11:58 Discharge Date/Time: 04/25/23 11:58 Print Language: Ug[place]an
== END 2023-04-25 11:58 | disposition home or self-care (01) ==
PROVIDERS: Emergency Provider Emergency Medicine Emergency Medical Services; PCP Nurse Practitioner Family
DX: R50.9 Fever, unspecified (principal); R06.02 Shortness of breath; J10.1 Influenza due to other identified influenza virus with other respiratory manifestations; Z20.822 Contact with and (suspected) exposure to COVID-19; Z20.828 Contact with and (suspected) exposure to other viral communicable diseases
CPT/HCPCS: 0241U; 99282; 99283

== ENCOUNTER 2023-04-28 10:57 | Outpatient (AMB) | payer OTHER, SELFPAY ==
--- NOTE | 2023-04-28 12:41 | MHC.OFFWIV ---
Intake Vital Signs 04/28/23 12:50 Height 5 ft 11 in Weight 177 lb BMI 24.7 BP 116/70 Blood Pressure Location Lt brachial Position Sitting Pulse 92 Pulse Source Pulse Oximeter Temp 97.1 F Temp Source Temporal Artery Scan Pulse Oximetry (%) 96 Oxygen Delivery Method Room Air Intake Visit Reasons: EST/runny nose/short of breath [phone] Intake Note: pt is here today for runny nose,shortness of breath started 2 days ago Patient Tobacco Use Status: Current everyday Tobacco user (chewing tobacco) Allergies No Known Allergies Allergy (Verified 04/28/23 13:00) Medication List - Last Reconciled 04/28/23 by Wong De Los Santos MD cane As directed flash glucose scanning reader (FreeStyle Ambika 2 [place]) As directed flash glucose sensor (FreeStyle Ambika 2 Sensor kit) As directed insulin glargine (Lantus Solostar U-100 Insulin) 40 units subcut BID insulin lispro 6 units (0.06 mL) subcut DAILY meclizine 25 mg PO TID metformin 1,000 mg (2 x 500 mg) PO BID miscellaneous medical supply 1 ea miscellaneous ONCE miscellaneous medical supply 1 ea miscellaneous ONCE pen needle, diabetic (Sure-Fine Pen [place]) As directed walker (Ultra-Light Rollator [facility] rollator walker with seat. Do you need a note to return to daycare/school/sports/work: No HPI EST/runny nose/short of breath [phone] HPI Details 52-year-old male presents to the office for a sick visit. Patient is complaining of exertional shortness of breath for the past 3 days. Postnasal drip and nonproductive cough. No nausea or vomiting. Patient's roommate is positive with COVID. He has tested negative repeatedly. [facility] Medical History Bilateral wrist pain Polyuria Suicidal ideation Excessive anger Glaucoma GERD (gastroesophageal reflux disease) Surgical History No pertinent past surgical history Family History Father Diabetes Prostate cancer Mother History of stroke Diabetes Social History Housing: Apartment Alcohol intake: current Alcohol intake frequency: holidays/special occasions only Alcohol type: beer Patient Tobacco Use Status: Current everyday Tobacco user (chewing tobacco) e-Cigarette/Vaping Use: Never Used Second Hand Smoke Exposure: Yes service: No Current occupational status: disabled Cognitive needs: Yes (wheelchair, cane) Hearing needs: No Vision needs: Yes (glasses) Physical Exam Vital Signs: Last Vital Signs Temp 97.1 F 04/28/23 12:50 Pulse 92 04/28/23 12:50 BP 116/70 04/28/23 12:50 Pulse Ox 96 04/28/23 12:50 Oxygen Delivery Method Room Air 04/28/23 12:50 BMI result Body Mass Index 24.7 Const General: cooperative and healthy appearing Nutritional Appearance: well nourished Orientation/consciousness: patient oriented x3 Limitations: no limitations HEENT Head: Yes normal to inspection Eyes General: appearance normal, both eyes and all related structures Neck Neck: Yes normal visual inspection Chest Chest palpation & inspection: normal palpation of entire chest wall Resp Other: Diminished breath sounds bilaterally. Neuro General: patient oriented x3 Assessment & Plan Assessment & Plan (1) Upper respiratory tract infection: Code(s): J06.9 - Acute upper respiratory infection, unspecified Plan: Antibiotics added to the regimen. Inhalers added to the regimen. Viral swab done. Will call with the results. Chest x-ray images personally reviewed by me. Questionable infiltrate in the left lower base. Orders: Orders XR chest 2V Today R05.9 - Cough, unspecified Coding Level of Care Code Est Pt Level 4 (75184) Diagnoses Upper respiratory tract infection J06.9
[2023-04-28 12:50] VITALS: BP 116/70; PULSE 92; TEMP 36.2; O2SAT 96; BMI 24.7
== END 2023-04-28 13:40 | disposition home or self-care (01) ==
PROVIDERS: PCP Nurse Practitioner Family; Visit Provider Internal Medicine
DX: J06.9 Acute upper respiratory infection, unspecified (principal)
CPT/HCPCS: 99214

== ENCOUNTER 2023-04-28 12:59 | Outpatient (REF) | payer OTHER, SELFPAY ==
--- NOTE | ~2023-04-28 | XR_ITS ---
EXAMINATION: XR CHEST CLINICAL INFORMATION: Cough. COMPARISON: None available. TECHNIQUE: 2 views of the chest were obtained. FINDINGS: Lungs are clear. No pulmonary vascular congestion. There is no pleural effusion. The heart size is normal. The cardiac and mediastinal contours are normal. There are multilevel degenerative changes of dorsal spine. XR/XR chest 2V IMPRESSION: Unremarkable examination.
[2023-04-28 17:42] LABS: Influenza A PCR POSITIVE (Negative); Influenza B PCR NEGATIVE (Negative); Resp Syncy Virus RNA Qual PCR NEGATIVE (Negative); SARS COV2 PCR INHOUSE NEGATIVE (Negative)
== END 2023-04-28 13:00 | disposition home or self-care (01) ==
LOC: HO.HMGCX 12:59
PROVIDERS: PCP Nurse Practitioner Family; Visit Provider Internal Medicine
DX: R05.9 Cough, unspecified (principal); R43.9 Unspecified disturbances of smell and taste; Z20.822 Contact with and (suspected) exposure to COVID-19
CPT/HCPCS: 0241U; 71046; 87086

== ENCOUNTER 2023-05-15 13:04 | Outpatient (AMB) | payer OTHER, SELFPAY ==
[2023-05-15 13:10] VITALS: BMI 27.4
--- NOTE | 2023-05-15 13:10 | A.OFFVIS_ITS ---
Intake VS Expanded 05/15/23 13:10 05/27/23 14:49 Height 5 ft 11 in 5 ft 11 in Weight 196 lb 10.437 oz 196 lb BMI 27.4 27.3 Intake Visit Reasons: T2DM/LVM Allergies No Known Allergies Allergy (Verified 04/28/23 13:00) HPI Nutrition Presentation Details Pt presents for MNT for T2DM. pt was referred by Dr. Cj Thomason Typical meal intake 9am coffee half and half with sweetened creamer and crackers coffee and donut 3pm: lunch: [employer] or [employer] , cruzito brenner , typically fast food 6 pm : rice/tesfaye, steak, water - home ma de meal 8-9 pm bowl of cereal (raisin bran with cereal with milk smoking : denies etoh: occ physical activity: daily life activities Pt on Lantus 40 units/day twice a day (reports taking it only once a day) and lispro 6 units once a day - reports sometime forgetting to take it IVJ-Caafrei-Uj.Jeor Equation Height 5 ft 11 in Weight 196 lb Resting Metabolic Rate 1759.52 Calculated Activity Level Mild Activity Calories Needed to Maintain Weight 2419.34 Diagnosis Nutrition problem #1 food nutri know defi As related to (etiology) #1 diagnosis As evidenced by (sign/symptom) #1 knowledge deficit of diet Monitoring/Goals Nutrition problem monitoring level of knowledge/skill Nutrition goal/outcome list 3 CHO foods Most Recent Diabetes Results: Cholesterol 260 mg/dL (<200) H 02/22/23 HDL Cholesterol 55 mg/dL (>40) 02/22/23 Triglycerides 203 mg/dL (<150) H 02/22/23 Creatinine 0.86 mg/dL (0.5-1.4) 03/21/23 Blood Urea Nitrogen 9 mg/dL (9-16) 03/21/23 Sodium 135 mmol/L (135-145) 03/21/23 Potassium 4.2 mmol/L (3.3-5.1) 03/21/23 Chloride 101 mmol/L (96-108) 03/21/23 Carbon Dioxide 30 mmol/L (22-29) H 03/21/23 Calcium 9.6 mg/dL (8.4-10.2) 03/21/23 AST 14 U/L (5-37) 03/21/23 ALT 14 U/L (0-40) 03/21/23 Total Protein 7.7 g/dL (6.5-8.0) 03/21/23 Albumin 4.3 g/dL (3.5-5.0) 03/21/23 [facility] Medical History Bilateral wrist pain Polyuria Suicidal ideation Excessive anger Glaucoma GERD (gastroesophageal reflux disease) Surgical History No pertinent past surgical history Family History Father Diabetes Prostate cancer Mother History of stroke Diabetes Social History Housing: Apartment Alcohol intake: current Alcohol intake frequency: holidays/special occasions only Alcohol type: beer Patient Tobacco Use Status: Current everyday Tobacco user (chewing tobacco) e-Cigarette/Vaping Use: Never Used Second Hand Smoke Exposure: Yes service: No Current occupational status: disabled Cognitive needs: Yes (wheelchair, cane) Hearing needs: No Vision needs: Yes (glasses) Assessment & Plan Assessment & Plan (1) Type 2 diabetes mellitus: Code(s): E11.9 - Type 2 diabetes mellitus without complications Plan: Wt: 89 Kg ( 05/2023 ) Est kcal needs as per MSJ: 2400 (40% carb, 30% protein/fat) Est fluid needs as per 30 ml/d: 2700 Est prot per day as per 1 g/kg bw: 89 Recommend fiber intake : 8-10 g per day and gradually increase to 25-28 g per day for women and 35-38 g for men or as tolerated Recommend sodium intake per day : less than 2000 mg Educated patient on: ( R = reviewed V = verbalizes understanding N/R = needs review N/A = not applicable * Food sources of carbohydrate, adequate serving sizes and its role in various health conditions: R * Differences between complex carbohydrates a simple carbohydrates, role of fiber in diet: R * Lean protein sources of foods: R * Differences between types of fats and role in diet (mono on saturated fat fatty acids, saturated fatty acids, trans fats): N/R * Food sources of sodium in salt and healthy modifications for heart health in kidney health: R/V * Vitamins and minerals: N/R * Healthy plate method concept: R * Physical activity: Benefits a precaution: R * Dietary prevention of Hyperglycemia: R Patient Instructions: Have water or milk with meals instead of juices/juice drinks Have a meal replacement instead of skipping lunch - see list of choices to choose from Choose low sugar cereals - see list Bring your glucose reader to your next followup Coding Level of Care Code Nutr Indiv Intake (18633) Diagnoses Type 2 diabetes mellitus E11.9 Time Spent (min) 30
[2023-05-27 14:49] VITALS: BMI 27.3
== END 2023-05-15 14:01 | disposition home or self-care (01) ==
PROVIDERS: Visit Provider Dietitian, Registered
DX: E11.9 Type 2 diabetes mellitus without complications (principal)

== ENCOUNTER → 2023-05-15 13:04 | Outpatient (BNVA) | payer OTHER, SELFPAY | PROVIDERS: Visit Provider Dietitian, Registered | DX: E11.9 Type 2 diabetes mellitus without complications (principal) | CPT/HCPCS: 97802 ==

== ENCOUNTER 2023-06-26 14:00 | Outpatient (AMB) | payer OTHER, SELFPAY ==
[2023-06-26 14:07] VITALS: BMI 34.7
--- NOTE | 2023-06-26 14:07 | MHC.AMNUTRGE ---
Intake VS Expanded 06/26/23 14:07 Height 5 ft 1 in Weight 183 lb 6.793 oz BMI 34.7 Intake Visit Reasons: T2DM/CONFIRMED Allergies No Known Allergies Allergy (Verified 04/28/23 13:00) HPI Nutrition Presentation Details Pt presents for MNT f/u for T2DM Pt did not bring glucometer to this appt. Pt is concerned about losing weight He reports he has a [employer] through [employer] Reports he should be on Lantus 40 units twice a day but takes only once a day and should be on Lispro 6 units/day but may forget to take it . Pt reports always taking metformin 1000 mg twice a day - does not forget Typical meal 7: 30 am Citizen Of [place] toast 2 (light syrup) 2 boiled eggs and coffee with half and diet sugar lunch: banana (sandwich - anything not related to using stove) 2:3 peanut butter crackers or nuts , water 4pm: white rice/beans squash, avocado salmon , water crystal light or diet beverages choosing energy drink zero 5 pm : peanut butter crackers or sandwich or cereal with milk Most Recent Diabetes Results: Cholesterol 260 mg/dL (<200) H 02/22/23 HDL Cholesterol 55 mg/dL (>40) 02/22/23 Triglycerides 203 mg/dL (<150) H 02/22/23 Creatinine 0.86 mg/dL (0.5-1.4) 03/21/23 Blood Urea Nitrogen 9 mg/dL (9-16) 03/21/23 Sodium 135 mmol/L (135-145) 03/21/23 Potassium 4.2 mmol/L (3.3-5.1) 03/21/23 Chloride 101 mmol/L (96-108) 03/21/23 Carbon Dioxide 30 mmol/L (22-29) H 03/21/23 Calcium 9.6 mg/dL (8.4-10.2) 03/21/23 AST 14 U/L (5-37) 03/21/23 ALT 14 U/L (0-40) 03/21/23 Total Protein 7.7 g/dL (6.5-8.0) 03/21/23 Albumin 4.3 g/dL (3.5-5.0) 03/21/23 [facility] Medical History Bilateral wrist pain Polyuria Suicidal ideation Excessive anger Glaucoma GERD (gastroesophageal reflux disease) Surgical History No pertinent past surgical history Family History Father Diabetes Prostate cancer Mother History of stroke Diabetes Social History Housing: Apartment Alcohol intake: current Alcohol intake frequency: holidays/special occasions only Alcohol type: beer Patient Tobacco Use Status: Current everyday Tobacco user (chewing tobacco) e-Cigarette/Vaping Use: Never Used Second Hand Smoke Exposure: Yes service: No Current occupational status: disabled Cognitive needs: Yes (wheelchair, cane) Hearing needs: No Vision needs: Yes (glasses) Assessment & Plan Assessment & Plan (1) Type 2 diabetes mellitus: Code(s): E11.9 - Type 2 diabetes mellitus without complications Plan: Wt: 89 Kg ( 05/2023 ), 83 kg (06/26/23) Est kcal needs as per MSJ: 2400 (40% carb, 30% protein/fat) Est fluid needs as per 30 ml/d: 2700 Est prot per day as per 1 g/kg bw: 89 Recommend fiber intake : 8-10 g per day and gradually increase to 25-28 g per day for women and 35-38 g for men or as tolerated Recommend sodium intake per day : less than 2000 mg Educated patient on: ( R = reviewed V = verbalizes understanding N/R = needs review N/A = not applicable Food sources of carbohydrate, adequate serving sizes and its role in various health conditions: R Differences between complex carbohydrates a simple carbohydrates, role of fiber in diet: R Lean protein sources of foods: R Differences between types of fats and role in diet (mono on saturated fat fatty acids, saturated fatty acids, trans fats): N/R Food sources of sodium in salt and healthy modifications for heart health in kidney health: R/V Vitamins and minerals: N/R Healthy plate method concept: R Physical activity: Benefits a precaution: R Dietary prevention of Hyperglycemia: R relationship of food , insulin, weight gain/loss: R Patient Instructions: Take insulin as prescribed by your doctor- set reminders in [place] for assistance Choose water or milk in place of soda/empty calorie beverages Switch to low sugar cereals at bedtime snack monitor your blood sugar before and after meals, bring scanner to your next appt for review Coding Level of Care Code Nutr Indiv Subseq (01426) Diagnoses Type 2 diabetes mellitus E11.9 Time Spent (min) 30
== END 2023-06-26 14:42 | disposition home or self-care (01) ==
PROVIDERS: Visit Provider Dietitian, Registered
DX: E11.9 Type 2 diabetes mellitus without complications (principal)

== ENCOUNTER → 2023-06-26 14:00 | Outpatient (BNVA) | payer OTHER, SELFPAY | PROVIDERS: Visit Provider Dietitian, Registered | DX: E11.9 Type 2 diabetes mellitus without complications (principal) | CPT/HCPCS: 97803 ==

== ENCOUNTER 2023-09-15 15:25 | Outpatient (AMB) | payer OTHER, SELFPAY ==
[2023-09-15 15:28] VITALS: BP 122/90; PULSE 60; O2SAT 96; BMI 26.1
--- NOTE | 2023-09-15 15:28 | MHC.PC.OV ---
Vital Signs 09/15/23 15:28 09/15/23 15:40 Height 5 ft 11 in Weight 187 lb 0.2 oz BMI 26.1 BP 122/90 H 110/80 Blood Pressure Location Lt brachial Lt brachial Position Sitting Sitting Pulse 60 Pulse Source Pulse Oximeter Pulse Oximetry (%) 96 Oxygen Delivery Method Room Air Intake Visit Reasons: Transfer care- see comments Coil Cleaner Required: No Allergies No Known Allergies Allergy (Verified 09/15/23 15:31) Medication List - Last Reconciled 09/15/23 by Russell Rick MD albuterol sulfate 90 mcg/actuation 1 inh inhalation QID PRN cane As directed flash glucose scanning reader (FreeStyle Ambika 2 Spur) As directed flash glucose sensor (FreeStyle Ambika 2 Sensor kit) As directed insulin glargine (Lantus Solostar U-100 Insulin) 40 units subcut BID insulin lispro 6 units (0.06 mL) subcut DAILY meclizine 25 mg PO TID [mens pull ups As directed 3-4 times per day ] metformin 500 mg PO BID miscellaneous medical supply 1 ea miscellaneous ONCE miscellaneous medical supply 1 ea miscellaneous ONCE pen needle, diabetic (Sure-Fine Pen [place]) As directed walker (Ultra-Light Rollator misc) rollator walker with seat. [washable bed pads As directed] Tobacco use date assessed: 09/15/23 Dental Screening Dental Screen Date: 04/10/23 HPI Transfer care- see comments HPI Details 53-year-old obese male with diabetes mellitus generalized anxiety disorder coming in. This is the 1st time I am seeing the patient. Noted elevated A1c before as well as high cholesterol. e. [facility] Medical History (Updated 09/15/23 @ 15:48 by Russell Rick MD) Obesity (BMI 30-39.9) Depression Type 2 diabetes mellitus Bilateral wrist pain Polyuria Suicidal ideation Excessive anger Glaucoma GERD (gastroesophageal reflux disease) Surgical History No pertinent past surgical history Family History (Updated 09/15/23 @ 15:49 by Russell Rick MD) Father Diabetes Prostate cancer Mother History of stroke Diabetes Brother Heart attack Social History (Updated 09/15/23 @ 15:50 by Russell Rick MD) Housing: Apartment Alcohol intake: current Alcohol intake frequency: holidays/special occasions only Alcohol type: beer Comment: 1 beer Q 7 months Patient Tobacco Use Status: Former Tobacco user (chewing tobacco) Years Smoked: stopped 16 years old e-Cigarette/Vaping Use: Never Used Second Hand Smoke Exposure: Yes service: No Current occupational status: disabled Cognitive needs: Yes (wheelchair, cane) Hearing needs: No Vision needs: Yes (glasses) Questionnaire PHQ-9 Over the last 2 weeks, how often have you been bothered by any of the following problems? 1. Little interest or pleasure in doing things: not at all 2. Feeling down, depressed, or hopeless: not at all 3. Trouble falling or staying asleep, or sleeping too much: not at all (falling asleep and staying asleep) 4. Feeling tired or having little energy: not at all 5. Poor appetite or overeating: not at all 6. Feeling bad about yourself - or that you are a failure or have let yourself or your family down: not at all 7. Trouble concentrating on things, such as reading the newspaper or watching television: not at all 8. Moving or speaking so slowly that other people could have noticed. Or the opposite - being so fidgety or restless that you have been moving around a lot more than usual: not at all 9. Thoughts that you would be better off or of hurting yourself in some way: not at all Total score: 0 Depression Screening Interpretation: Positive (referral entered to psych ) Depression Screening Follow-up: Existing condition Depression Screening Done: Yes 89985 - PHQ-9 Billing: Yes Source: Developed by Drs. Zi Hidalgo, Nishi Samuel, Dariusz Robbins and colleagues, with an educational radha from [employer]. Thrive Questionnaire Date Thrive assessed: 02/21/23 AUDIT C Alcohol Use Questionnaire (AUDIT-C) 1. How often do you have a drink containing alcohol?: Never Total Score: 0 TEMI-7 AMB Questionnaire TEMI-7 Date TEMI - 7 assessed: 09/15/23 Feeling nervous, anxious, or on edge: 1 = Several days Not being able to stop or control worryin = Several days Worrying too much about different things: 1 = Several days Trouble relaxin = Several days Being so restless that it is hard to sit still: 0 = Not at all Becoming easily annoyed or irritable: 0 = Not at all Feeling afraid as if something awful might happen: 0 = Not at all Total TEMI-7 score (0-4 normal; 5-9 mild; 10-14 moderate; 15-21 severe): 4 Source: Developed by Drs. Zi Hidalgo, Nishi Samuel, Dariusz Robbins and colleagues, with an educational radha from [employer]. TEMI-7 Assessment Billing TEMI-7 Assessment Tool: TEMI-7 Assessment 26447 Physical exam (Primary Care) Vital Signs: Last Vital Signs Pulse 60 09/15/23 15:28 BP 122/90 H 09/15/23 15:28 Pulse Ox 96 09/15/23 15:28 Oxygen Delivery Method Room Air 09/15/23 15:28 BMI result Body Mass Index 26.1 Tobacco/Smoking Status: Tobacco use Status Tobacco use date assessed 09/15/23 09/15/23 15:36 Patient Tobacco Use Status Current everyday Tobacco ( 09/15/23 15:30 chewing tobacco) e-Cigarette/Vaping Use Never Used 09/15/23 15:30 PHQ-9: PHQ-9 Score PHQ-9: Total score 0 09/15/23 15:37 Depression Screening Interpretation: Positive (referral entered to psych ) Depression Screening Follow-up: Existing condition Thrive Assessment: Date of Thrive Assessment Date Thrive assessed 02/21/23 09/15/23 15:30 Const General: alert; No acute distress Eyes Conjunctivae: conjunctivae normal Resp Auscultation: clear to auscultation bilaterally Cardio Rate: regular rate Rhythm: regular rhythm GI Inspection: Yes normal to inspection Extrem General: Yes normal to inspection and No edema Results AMB Hemoglobin A1c AMB Hemoglobin A1c 14.0 % Last Edit by HUY Javed on 09/15/23 15:39 14.0> Hanane Baer 09/15/23 15:39 Assessment and Plan Assessment & Plan (1) Type 2 diabetes mellitus with hyperglycemia: Code(s): E11.65 - Type 2 diabetes mellitus with hyperglycemia Plan: Decrease the amount of carbohydrate intake, pasta, bread, rice and potatoes are all sugar and that is aside from all the sweet stuff, remember that fruits are good but they are Sweet also. Hemoglobin A1c goal of less than 6.5. Patient on metformin a 1000 mg twice a day Lantus insulin at 40 units twice a day (2) Hypercholesterolemia: Code(s): E78.00 - Pure hypercholesterolemia, unspecified Plan: Avoid fried foods, chicken skin, eggs, butter margarine, pastries and meat. Be it pork or beef they have a lot of cholesterol LDL goal of less than 100 and triglyceride of less than 150. Will need repeat blood work (3) Generalized anxiety disorder: Comment: [facility] referral done - awaiting Code(s): F41.1 - Generalized anxiety disorder (4) SOB (shortness of breath): Code(s): R06.02 - Shortness of breath (5) CAD (coronary artery disease): Comment: [place] 2022 Code(s): I25.10 - Atherosclerotic heart disease of [place] coronary artery without angina pectoris (6) History of CVA (cerebrovascular accident): Comment: 2015, L side weakness and speech slurring Code(s): Z86.73 - Personal history of transient ischemic attack (TIA), and cerebral infarction without residual deficits (7) Glaucoma: Comment: Both eyes, follows with ophthalmology Code(s): H40.9 - Unspecified glaucoma (8) Cataract: Comment: Eye and [place] limited cision R eye Code(s): H26.9 - Unspecified cataract Orders: Orders AMB Hemoglobin A1c Today Russell Rick MD E11.9 - Type 2 diabetes mellitus without complications Comprehensive Met. Panel Today Russell Rick MD E11.65 - Type 2 diabetes mellitus with hyperglycemia Thyroid Stimulating Hormone Today Russell Rick MD E11.65 - Type 2 diabetes mellitus with hyperglycemia Vitamin B12 and Folate Today Russell Rick MD E11.65 - Type 2 diabetes mellitus with hyperglycemia Microalbumin, Random (w Creat) Today Russell Rick MD E11.65 - Type 2 diabetes mellitus with hyperglycemia Creatinine Urine Today Russell Rick MD E11.65 - Type 2 diabetes mellitus with hyperglycemia PFT pulmonary function test Today Russell Rick MD R06.02 - Shortness of breath Complete Blood Count Auto Diff Today Russell Rick MD E11.65 - Type 2 diabetes mellitus with hyperglycemia Free T4 (Free Thyroxine) Today Russell Rick MD E11.65 - Type 2 diabetes mellitus with hyperglycemia Lipid Panel Today Russell Rick MD E11.65 - Type 2 diabetes mellitus with hyperglycemia, E78.00 - Pure hypercholesterolemia, unspecified Prostate Specific Antigen Scr Today Russell Rick MD E11.65 - Type 2 diabetes mellitus with hyperglycemia Referrals Endocrinology Referral Russell Rick MD E11.65 - Type 2 diabetes mellitus with hyperglycemia Cardiology Referral Russell Rick MD I25.10 - Atherosclerotic heart disease of [place] coronary artery without angina pectoris Medications: Changed From metformin 1,000 mg (2 x 500 mg) PO BID 60 tabs 3RF R06.02 - Shortness of breath To metformin 500 mg PO BID R06.02 - Shortness of breath ANITA Duong Refilled meclizine 25 mg PO TID 20 tabs 0RF Russell Rick MD I25.10 - Atherosclerotic heart disease of [place] coronary artery without angina pectoris [washable bed pads] As directed 60 ea 11RF Russell Rick MD R32 - Unspecified urinary incontinence [mens pull ups] As directed 3-4 times per day 100 ea 12RF Russell Rick MD R32 - Unspecified urinary incontinence Coding Level of Care Code Est Pt Level 4 (71359) Diagnoses Type 2 diabetes mellitus with hyperglycemia E11.65 Hypercholesterolemia E78.00 Generalized anxiety disorder F41.1 SOB (shortness of breath) R06.02 CAD (coronary artery disease) I25.10 History of CVA (cerebrovascular accident) Z86.73 Glaucoma H40.9 Cataract H26.9 Additional Codes TEMI-7 Assessment Billing - TEMI-7 Assessment Tool: TEMI-7 Assessment [id number] ([id number])
[2023-09-15 15:40] VITALS: BP 110/80
== END 2023-09-15 16:59 | disposition home or self-care (01) ==
PROVIDERS: Visit Provider Internal Medicine
DX: E11.65 Type 2 diabetes mellitus with hyperglycemia (principal); E78.00 Pure hypercholesterolemia, unspecified; F41.1 Generalized anxiety disorder; R06.02 Shortness of breath; I25.10 Atherosclerotic heart disease of native coronary artery without angina pectoris; Z86.73 Personal history of transient ischemic attack (TIA), and cerebral infarction without residual deficits; H40.9 Unspecified glaucoma; H26.9 Unspecified cataract
CPT/HCPCS: 83036; 99214

== ENCOUNTER 2023-09-22 14:43 | Outpatient (AMB) | payer OTHER, SELFPAY ==
[2023-09-22 14:56] VITALS: BP 114/82; BMI 26.5
--- NOTE | 2023-09-22 14:56 | A.OFFVIS_ITS ---
Vital Signs 09/22/23 14:56 Height 5 ft 11 in Weight 190 lb BMI 26.5 BP 114/82 Blood Pressure Location Rt brachial Position Sitting Intake Visit Reasons: [id number] Intake Note: Patient presents for forgetting things. Patient remember detention things but not short term. Allergies No Known Allergies Allergy (Verified 09/22/23 14:59) Medication List - Last Reconciled 09/22/23 by ANITA Chaves albuterol sulfate 90 mcg/actuation 1 inh inhalation QID PRN cane As directed dorzolamide-timolol (PF) 2-0.5 % 1 drp ophthalmic (eye) BID flash glucose scanning reader (FreeStyle Ambika 2 [place]) As directed flash glucose sensor (FreeStyle Ambika 2 Sensor kit) As directed insulin glargine (Lantus Solostar U-100 Insulin) 40 units subcut BID insulin lispro 6 units (0.06 mL) subcut DAILY latanoprost 0.005% drps ophthalmic (eye) meclizine 25 mg PO TID [mens pull ups As directed 3-4 times per day ] metformin 500 mg PO BID miscellaneous medical supply 1 ea miscellaneous ONCE miscellaneous medical supply 1 ea miscellaneous ONCE pen needle, diabetic (Sure-Fine Pen [place]) As directed walker (Ultra-Light Rollator [facility] [place]) rollator walker with seat. [washable bed pads As directed] HPI Comments Details: Right-handed 53-yr-old male presents for neurological evaluation of: worsening cognitive difficulties in setting of PMH CVA, type 2 DM, TEMI, CAD, HLD, glaucoma, depression, PTSD, chronic lumbar back pain and chronic bilateral knee pain. Pt reports he suffered a right-sided stroke in 2014- pt states was embolic, has had gait difficulties- legs giving out. Some time later he started having cognitive difficulties, which has been progressing. He states he has had a few heart attacks since. Pt is not on ASA or anticoagulant- pt states was told to stop ASA. He has recently been referred to [facility] [place]. His recent HgA1C was 14%- was referred to endocrinology. He is not sure when his last brain MRI was. Had Head Ct in Mar 2023- no acute findings- Scattered periventricular and deep white matter hypoattenuation c/w mild microangiopathy. Mqky-es-izazqymx volume loss without hydrocephalus. He lives in a house w/ his roommate/INDUSTRIAL TRUCK MECHANIC- who he has known for many years. Pt reports she has difficulty with short term memories. For instance, the other day, he told his brother that they should apple picker his father, who 6 months ago. He has to write down what he needs to do throughout the day. His roommate leaves sticky notes up to remind him to do things. He states his roommate/INDUSTRIAL TRUCK MECHANIC helps him to manage his finances. His roommate does all the cooking. His INDUSTRIAL TRUCK MECHANIC helps him manage his medications and insulin. He cannot recall his gestational or early development history. He was born in the [facility]. 1st language is Bangladeshi, but he only knows how to read and write in Sinhala. He states he was a good student in [employer]. Then school became more difficult in high school, as his mother moved away with his 2 youngest siblings when he was 14. He had to move in w/ his friend. He completed 10th grade. After leaving school, he worked on a tobacco farm until 2009 and then he moved back to [place]. 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 He has been on disability since the stroke in 2015. Patient also endorses: External spinning vertigo- uses meclizine prn. Horizontal diplopia- when eyes are tired, needs to blink to refocus. Cannot read without his glasses, statses he has significant vision loss in right eye. He has intermittent chest pains or irregular heartbeat- f/b [facility] [place]. SOB. Remote h/o syncope during last NM 2-3 yrs ago. Headaches- Right sided eye pressure headache a/w nausea, photophobia, phonophobia, allodynia. He feels this is d/t increased IOP. Uses Tylenol or Excedrin Migraine- does not always help. He has 1-2 attacks per month, which can last 7 days. Memory is not worse during headache. He may be sitting in his living room- and can see his mothe rwalk by him, or feel her pull on his leg. He can wake up crying. He has a h/o sleep apnea- states he does not use PAP tx, as he felt like he would as their was enough air. May have tremor when sugar is elevated. Has a h/o anxiety, depression, can have flare-ups of PTSD and paranoia. He states he was told he has bipolar. When very anxious- feels defensive and self- isolates. Currently- mood is stable. He is on a wait list for psychiatry. And patient denies: H/o concussions or head injuries. His mother at age 85- had cognitive issues in her later yrs and had other health issues. His father at age 83- pt thinks it was d/t an NM. His 3 younger siblings- no cognitive difficulties. [facility] Medical History (Updated 09/22/23 @ 16:20 by ANITA Chaves) Obesity (BMI 30-39.9) Depression Type 2 diabetes mellitus Bilateral wrist pain Polyuria Suicidal ideation Excessive anger Glaucoma GERD (gastroesophageal reflux disease) Surgical History (Updated 09/22/23 @ 15:00 by HUY Leavitt) H/O eye surgery No pertinent past surgical history Family History Father Diabetes Prostate cancer Mother History of stroke Diabetes Brother Heart attack Social History Housing: Apartment Alcohol intake: current Alcohol intake frequency: holidays/special occasions only Alcohol type: beer Comment: 1 beer Q 7 months Patient Tobacco Use Status: Former Tobacco user (chewing tobacco) Years Smoked: stopped 16 years old e-Cigarette/Vaping Use: Never Used Second Hand Smoke Exposure: Yes service: No Current occupational status: disabled Cognitive needs: Yes (wheelchair, cane) Hearing needs: No Vision needs: Yes (glasses) Physical Exam Vital Signs: Last Vital Signs BP 114/82 09/22/23 14:56 BMI result Body Mass Index 26.5 Const General: cooperative and no acute distress Orientation/consciousness: patient oriented x3 HEENT Head: Yes normocephalic Resp Effort & Inspection: normal respiratory effort and able to speak in complete sentences Neuro Other: Right TMJ region discomfort on palpation. Bilateral TMJ region tightness- on jaw opening Bilateral lower teeth wearing Right posterior cervical tenderness. Stands easily, slightly unteady gait at times. General: patient oriented x3, CN's II-XI intact bilaterally and deep tendon reflexes 2+ bilaterally Motor exam (neuro): 5/5 motor strength present throughout Psych Appearance: grossly normal Mental Status: mental status grossly normal Speech and movement: Normal speech and movement present Affect: normal affect Attitude: cooperative Thought process: Normal thought process present Thought content: Normal thought content present Insight: Good insight present (Psych) Orientation What is the (year) (season) (date) (day) (month)?: season, date, day and month Where are we (state) (county) (town or city) (hospital) (floor)?: state, county, town or city, hospital/clinic and floor Registration Name of 3 unrelated objects clearly and slowly, then ask patient to repeat all 3 of them. (1st repeat determines score. Make sure they can repeat all three): object 1, object 2 and object 3 Attention & Calculation (CHOOSE ONE) Spell WORLD backwards (DLROW): 5 letters Recall Ask patient to repeat the 3 items from question #3.: object 1 and object 2 Language Show patient a wristwatch & ask what it is. Repeat for pencil.: watch and pencil Ask the patient to repeat the phrase 'No ifs, ands, or buts' after you.: incorrect Ask the patient to 'take a piece of paper with their right hand' 'fold paper in half' 'place paper on floor': fold paper in half and place paper on floor Print the sentence 'CLOSE YOUR EYES' on a piece. If patient actually closes eyes then score.: followed written direction Give patient a blank piece of paper & ask to write a sentence. Score if it contains a noun & verb.: sentence contains subject and verb Ask patient to copy figure of intersecting pentagons exactly. Score if all 10 angles & 2 intersects are included.: all 10 angles present & 2 are intersected Score Score: 26 Assessment & Plan Assessment & Plan (1) Cognitive dysfunction: Code(s): F09 - Unspecified mental disorder due to known physiological condition Category: Medical (2) Right sided temporal headache: Code(s): R51.9 - Headache, unspecified Category: Medical (3) Migraine without aura: Code(s): G43.009 - Migraine without aura, not intractable, without status migrainosus Category: Medical Plan Pt advised to undergo: Labs as ordered by PCP. Will order additional labs to assess for secondary etiologies of cognitive difficulties and right eye/temporal headache. Brain MRI w/wo EEG Neuro-psych eval. Concur w/ cardiology and endocrinology consults as ordered. Consider optimizing CV risk factors upon review of above. Monitor hallucinations and tremor. Future considerations- revisiting LLOYD dx. Trial Nurtec ODT 75mg qd prn- right eye/temporal migraine attack. Try to reduce prn Tylenol and Excedrin use. Follow-up upon review of above and in clinic in 3 months or sooner prn. Orders: Orders Erythrocyte Sedimentation Rate 09/22/23 F09 - Unspecified mental disorder due to known physiological condition, I25.10 - Atherosclerotic heart disease of [place] coronary artery without angina pectoris, R06.02 - Shortness of breath, E78.00 - Pure hypercholesterolemia, unspecified, E11.65 - Type 2 diabetes mellitus with hyperglycemia Syphilis Screen 09/22/23 F09 - Unspecified mental disorder due to known physiological condition, I25.10 - Atherosclerotic heart disease of [place] coronary artery without angina pectoris, R06.02 - Shortness of breath, E78.00 - Pure hypercholesterolemia, unspecified, E11.65 - Type 2 diabetes mellitus with hyperglycemia MR head/brain wo/w con 09/22/23 F09 - Unspecified mental disorder due to known physiological condition, R51.9 - Headache, unspecified, Z86.73 - Personal history of transient ischemic attack (TIA), and cerebral infarction without residual deficits, E78.00 - Pure hypercholesterolemia, unspecified, E11.65 - Type 2 diabetes mellitus with hyperglycemia EEG electroencephalogram 09/22/23 F09 - Unspecified mental disorder due to known physiological condition, R51.9 - Headache, unspecified, Z86.73 - Personal history of transient ischemic attack (TIA), and cerebral infarction without residual deficits SHANNEN Reflex Titer and Pattern 09/22/23 F09 - Unspecified mental disorder due to known physiological condition, I25.10 - Atherosclerotic heart disease of [place] coronary artery without angina pectoris, R06.02 - Shortness of breath, E78.00 - Pure hypercholesterolemia, unspecified, E11.65 - Type 2 diabetes mellitus with hyperglycemia Rheumatoid Factor 09/22/23 F09 - Unspecified mental disorder due to known physiological condition, I25.10 - Atherosclerotic heart disease of [place] coronary artery without angina pectoris, R06.02 - Shortness of breath, E78.00 - Pure hypercholesterolemia, unspecified, E11.65 - Type 2 diabetes mellitus with hyperglycemia CRP High Sensitivity 05/13/24 F09 - Unspecified mental disorder due to known physiological condition, I25.10 - Atherosclerotic heart disease of [place] coronary artery without angina pectoris, R06.02 - Shortness of breath, E78.00 - Pure hypercholesterolemia, unspecified, E11.65 - Type 2 diabetes mellitus with hyperglycemia HIV Ab/Ag 09/22/23 F09 - Unspecified mental disorder due to known physiological condition, I25.10 - Atherosclerotic heart disease of [place] coronary artery without angina pectoris, R06.02 - Shortness of breath, E78.00 - Pure hypercholesterolemia, unspecified, E11.65 - Type 2 diabetes mellitus with hyperglycemia Vitamin D 25-OH (D2 and D3) 09/22/23 F09 - Unspecified mental disorder due to known physiological condition, I25.10 - Atherosclerotic heart disease of [place] coronary artery without angina pectoris, R06.02 - Shortness of breath, E78.00 - Pure hypercholesterolemia, unspecified, E11.65 - Type 2 diabetes mellitus with hyperglycemia Referrals Neuropsychiatry Referral F09 - Unspecified mental disorder due to known physiological condition, Z86.73 - Personal history of transient ischemic attack (TIA), and cerebral infarction without residual deficits, E11.65 - Type 2 diabetes mellitus with hyperglycemia, F43.10 - Post-traumatic stress disorder, unspecified Medications: New rimegepant (Nurtec ODT) 75 mg PO ONCE PRN 16 tabs 3RF migraine headache 30 days MDD 1 tab Coding Level of Care Code New Pt Level 4 (44753) Diagnoses Cognitive dysfunction F09 Right sided temporal headache R51.9 Migraine without aura G43.009
== END 2023-09-22 15:58 | disposition home or self-care (01) ==
PROVIDERS: Visit Provider Nurse Practitioner Family
DX: R41.89 Other symptoms and signs involving cognitive functions and awareness (principal); G43.009 Migraine without aura, not intractable, without status migrainosus
CPT/HCPCS: 99204

== ENCOUNTER → 2023-09-22 14:43 | Outpatient (BNVA) | payer OTHER, SELFPAY | PROVIDERS: Visit Provider Nurse Practitioner Family | DX: F09 Unspecified mental disorder due to known physiological condition (principal); G43.009 Migraine without aura, not intractable, without status migrainosus; Z86.73 Personal history of transient ischemic attack (TIA), and cerebral infarction without residual deficits | CPT/HCPCS: 99202 ==

== ENCOUNTER 2024-01-19 15:22 | Outpatient (AMB) | payer OTHER, SELFPAY ==
--- NOTE | 2024-01-19 15:27 | A.OFFPC_ITS ---
Vital Signs 3 01/19/24 15:28 Height 5 ft 11 in Weight 189 lb BMI 26.4 BP 132/76 Blood Pressure Location Lt brachial Position Sitting Pulse 83 Pulse Source Pulse Oximeter Pulse Oximetry (%) 94 Oxygen Delivery Method Room Air Intake Visit Reasons: Glucose Check - Questions Accompanied by: Self / Same As Patient Allergies No Known Allergies Allergy (Verified 01/19/24 15:34) Medication List - Last Reconciled 01/19/24 by Russell Rick MD albuterol sulfate 90 mcg/actuation 1 inh inhalation QID PRN blood-glucose meter,continuous (Dexcom G7 Data Entry Clerk) As directed blood-glucose sensor (FreeStyle Ambika 3 Plus Sensor device) As directed Q 2 weeks blood-glucose sensor (Dexcom G7 Sensor device) As directed cane As directed dorzolamide-timolol (PF) 2-0.5 % 1 drp ophthalmic (eye) BID flash glucose scanning reader (FreeStyle Ambika 2 [place]) As directed flash glucose sensor (FreeStyle Ambika 2 Sensor kit) As directed insulin glargine (Lantus Solostar U-100 Insulin) 40 units subcut BID insulin lispro 6 units (0.06 mL) subcut DAILY latanoprost 0.005% drps ophthalmic (eye) meclizine 25 mg PO TID [mens pull ups As directed 3-4 times per day ] metformin 500 mg PO BID miscellaneous medical supply 1 ea miscellaneous ONCE miscellaneous medical supply 1 ea miscellaneous ONCE pen needle, diabetic (Sure-Fine Pen [place]) As directed rimegepant (Nurtec ODT) 75 mg PO ONCE PRN 30 days MDD 1 tab triamcinolone acetonide 0.5% 1 appl topical BID walker (Ultra-Light Rollator [place]) rollator walker with seat. [washable bed pads As directed] Tobacco use date assessed: 09/15/23 Dental Screening Dental Screen Date: 01/19/24 Did you have a dental visit in the last 12 months?: Yes Did you have a dental problem in the last 6 months where you did not have access to dental care?: No Was dental information given to patient?: Patient has dentist HPI Glucose Check - Questions 2 HPI0 Details 53-year-old male with uncontrolled diabe jane mellitus hypercholesterolemia generalized anxiety disorder lumbar spondylosis coronary artery disease with a history of CVA coming in for follow-up. Last seen in 09/29/2023. Review of the notes in October 2023 had a chest x-ray done showing new no radiographic evidence of cardiopulmonary process. ER visit due to hypoglycemia. Patient also follows up with Neurology due to cognitive problem right-sided stroke in 2014 embolic was given Zyrtec for migraine. patient had the sensor fell off and asking for help. dicussed about a sensor cover. also has a rash on the L arm rash 5 days PFSH Medical History (Updated 01/19/24 @ 16:12 by Russell Rick MD) Obesity (BMI 30-39.9) Depression Type 2 diabetes mellitus Bilateral wrist pain Polyuria Suicidal ideation Excessive anger Glaucoma GERD (gastroesophageal reflux disease) Surgical History (Updated 09/22/23 @ 15:00 by HUY Leavitt) H/O eye surgery No pertinent past surgical history Family History Father Diabetes Prostate cancer Mother History of stroke Diabetes Brother Heart attack Social History Housing: Apartment Alcohol intake: current Alcohol intake frequency: holidays/special occasions only Alcohol type: beer Comment: 1 beer Q 7 months Patient Tobacco Use Status: Former Tobacco user (chewing tobacco) Tobacco use type: Cigarette Years Smoked: stopped 16 years old e-Cigarette/Vaping Use: Never Used Second Hand Smoke Exposure: Yes service: No Current occupational status: disabled Cognitive needs: Yes (wheelchair, cane) Hearing needs: No Vision needs: Yes (glasses) Questionnaire PHQ-9 Over the last 2 weeks, how often have you been bothered by any of the following problems? 1. Little interest or pleasure in doing things: not at all 2. Feeling down, depressed, or hopeless: not at all 3. Trouble falling or staying asleep, or sleeping too much: not at all (falling asleep and staying asleep) 4. Feeling tired or having little energy: not at all 5. Poor appetite or overeating: not at all 6. Feeling bad about yourself - or that you are a failure or have let yourself or your family down: not at all 7. Trouble concentrating on things, such as reading the newspaper or watching television: not at all 8. Moving or speaking so slowly that other people could have noticed. Or the opposite - being so fidgety or restless that you have been moving around a lot more than usual: not at all 9. Thoughts that you would be better off or of hurting yourself in some way: not at all Total score: 0 Depression Screening Interpretation: Positive (referral entered to psych ) Depression Screening Follow-up: Existing condition Depression Screening Done: Yes 65160 - PHQ-9 Billing: Yes Source: Developed by Drs. Zi Hidalgo, Nishi Samuel, Dariusz Robbins and colleagues, with an educational radha from [employer]. Thrive Questionnaire Date Thrive assessed: 01/19/24 I am a: Patient What is your living situation today?: I have a steady place to live Within the past 12 months, did the food you bought not last and you didn't have the money to get more?: Never true Within the past 12 months, did you worry whether your food would run out before you got money to buy more?: Never true Do you have trouble paying for medicines?: Yes Do you have trouble getting transportation to medical appointments?: Yes Do you have trouble paying your heating and electricity bill?: No Do you have trouble taking care of your child, family member or friend?: No Do you have trouble with day-to-day activities such as bathing, preparing meals, shopping, managing finances, etc.?: No Are you currently unemployed and looking for a job?: No Are you interested in more education?: No Please select the resources that you would like help with: Paying for medicine and Transportation THRIVE Score: 1 AUDIT C Alcohol Use Questionnaire (AUDIT-C) 1. How often do you have a drink containing alcohol?: Never Total Score: 0 TEMI-7 AMB Questionnaire TEMI-7 Date TEMI - 7 assessed: 09/15/23 Source: Developed by Drs. Zi Hidalgo, Nishi Samuel, Dariusz Robbins and colleagues, with an educational radha from [employer]. Physical exam (Primary Care) Vital Signs: Last Vital Signs Pulse 83 01/19/24 15:28 BP 132/76 01/19/24 15:28 Pulse Ox 94 01/19/24 15:28 Oxygen Delivery Method Room Air 01/19/24 15:28 BMI result Body Mass Index 26.4 Tobacco/Smoking Status: Tobacco use Status Tobacco use date assessed 09/15/23 01/19/24 15:27 Patient Tobacco Use Status Former Tobacco user (chewing 01/19/24 15:27 tobacco) Tobacco use type Cigarette 01/19/24 15:37 e-Cigarette/Vaping Use Never Used 01/19/24 15:27 PHQ-9: PHQ-9 Score PHQ-9: Total score 0 01/19/24 15:39 Depression Screening Interpretation: Positive (referral entered to psych ) Depression Screening Follow-up: Existing condition Thrive Assessment: Date of Thrive Assessment Date Thrive assessed 01/19/24 01/19/24 15:37 Const General: alert; No acute distress Eyes Conjunctivae: conjunctivae normal Resp Auscultation: clear to auscultation bilaterally Cardio Rate: regular rate Rhythm: regular rhythm GI Inspection: Yes normal to inspection Skin Full body images: 2 1. reddish rash with papular rash 3 by 4 cm no scaliness Extrem General: Yes normal to inspection and No edema Results AMB Hemoglobin A1c 2 AMB Hemoglobin A1c 13.3 % Last Edit by Dalia Wen CMA on 01/19/24 15:3 9 Results Reviewed Results Reviewed: Laboratory Last Values Hgb A1c (Clinic) 13.3 % (4.0-6.0) H 01/19/24 15:37 Assessment and Plan Assessment & Plan (1) Type 2 diabetes mellitus with hyperglycemia: Comment: Eye and lasik 07/2023 Code(s): E11.65 - Type 2 diabetes mellitus with hyperglycemia Plan: Decrease the amount of carbohydrate intake, pasta, bread, rice and potatoes are all sugar and that is aside from all the sweet stuff, remember that fruits are good but they are Sweet also. Hemoglobin A1c goal of less than 6.5. Presently on Lantus at 40 units lispro sliding scale metformin 500 twice a day. Discussed about covers for the sensor of the freestyle to prevent it from falling off. Meanwhile nurse navigator came by and gave freestyle Ambika 3 as the sample (2) Generalized anxiety disorder: Comment: [facility] referral done - awaiting Code(s): F41.1 - Generalized anxiety disorder Plan: Stable (3) Hypercholesterolemia: Code(s): E78.00 - Pure hypercholesterolemia, unspecified Plan: Avoid fried foods, chicken skin, eggs, butter margarine, pastries and meat. Be it pork or beef they have a lot of cholesterol patient is needed to have an LDL of less than 100 and triglyceride of less than 150 (4) CAD (coronary artery disease): Comment: 2022 Code(s): I25.10 - Atherosclerotic heart disease of [place] coronary artery without angina pectoris Plan: Control the cholesterol, weight, blood pressure, diabetes patient is not on aspirin but should be. (5) History of CVA (cerebrovascular accident): Comment: 2015, L side weakness and speech slurring Code(s): Z86.73 - Personal history of transient ischemic attack (TIA), and cerebral infarction without residual deficits Plan: Patient should be on aspirin (6) Allergic contact dermatitis: Code(s): L23.9 - Allergic contact dermatitis, unspecified cause Plan: Steroid cream given Orders: Orders 2 AMB Hemoglobin A1c Today E11.65 - Type 2 diabetes mellitus with hyperglycemia Medications: New 2 triamcinolone acetonide 0.5% 1 appl topical BID 30 grams 0RF L23.9 - Allergic contact dermatitis, unspecified cause blood-glucose sensor (FreeStyle Ambika 3 Plus Sensor device) As directed Q 2 weeks 2 ea 12RF E11.65 - Type 2 diabetes mellitus with hyperglycemia Coding Level of Care Code Est Pt Level 4 (52289) Complex EM visit Add On G2211 Diagnoses Type 2 diabetes mellitus with hyperglycemia E11.65 Generalized anxiety disorder F41.1 Hypercholesterolemia E78.00 CAD (coronary artery disease) I25.10 History of CVA (cerebrovascular accident) Z86.73 Allergic contact dermatitis L23.9
[2024-01-19 15:28] VITALS: BP 132/76; PULSE 83; O2SAT 94; BMI 26.4
== END 2024-01-19 16:43 | disposition home or self-care (01) ==
PROVIDERS: PCP Internal Medicine; Visit Provider Internal Medicine
DX: E11.65 Type 2 diabetes mellitus with hyperglycemia (principal); F41.1 Generalized anxiety disorder; E78.00 Pure hypercholesterolemia, unspecified; I25.10 Atherosclerotic heart disease of native coronary artery without angina pectoris; Z86.73 Personal history of transient ischemic attack (TIA), and cerebral infarction without residual deficits; L23.9 Allergic contact dermatitis, unspecified cause
CPT/HCPCS: 83036; 99214; G2211

== ENCOUNTER 2024-07-20 15:36 | Outpatient (AMB) | payer OTHER, SELFPAY ==
[2024-07-20 15:40] VITALS: BP 110/76; PULSE 84; O2SAT 96; BMI 26.3
--- NOTE | 2024-07-20 15:40 | MHC.PC.OV ---
Vital Signs 07/20/24 15:40 Height 5 ft 11 in Weight 188 lb 8 oz BMI 26.3 BP 110/76 Blood Pressure Location Lt brachial Position Sitting Pulse 84 Pulse Source Pulse Oximeter Pulse Oximetry (%) 96 Oxygen Delivery Method Room Air Intake Visit Reasons: discuss knee brace/pain in knee Manager Fire Required: No Accompanied by: Self / Same As Patient Allergies No Known Allergies Allergy (Verified 07/20/24 15:40) Medication List - Last Reconciled 07/20/24 by Russell Rick MD albuterol sulfate 90 mcg/actuation 1 inh inhalation QID PRN blood-glucose meter,continuous (Dexcom G7 Supervisor Engine Assembly) As directed cane As directed dorzolamide-timolol (PF) 2-0.5 % 1 drp ophthalmic (eye) BID flash glucose scanning reader (FreeStyle Ambika 2 [place]) As directed flash glucose sensor (FreeStyle Ambika 2 Sensor kit) As directed insulin glargine (Lantus Solostar U-100 Insulin) 40 units (0.4 mL) subcut BID insulin lispro 6 units (0.06 mL) subcut TID latanoprost 0.005% drps ophthalmic (eye) meclizine 25 mg PO TID [mens pull ups As directed 3-4 times per day ] metformin 500 mg PO BID miscellaneous medical supply 1 ea miscellaneous ONCE miscellaneous medical supply 1 ea miscellaneous ONCE pen needle, diabetic (Sure-Fine Pen [place]) As directed rimegepant (Nurtec ODT) 75 mg PO ONCE PRN 30 days MDD 1 tab triamcinolone acetonide 0.5% 1 appl topical BID walker (Ultra-Light Rollator misc) rollator walker with seat. [washable bed pads As directed] Tobacco use date assessed: 07/20/24 Dental Screening Dental Screen Date: 07/20/24 Did you have a dental visit in the last 12 months?: Yes Did you have a dental problem in the last 6 months where you did not have access to dental care?: No Was dental information given to patient?: Patient has dentist HPI discuss knee brace/pain in knee HPI Details pain on the knee states fall in May hitting l occiput , no passing out states confused. states had IRIZARRY but no changes. knee pain for years - states asking for knee braces [facility] Medical History (Updated 07/20/24 @ 16:12 by Russell Rick MD) Obesity (BMI 30-39.9) Depression Type 2 diabetes mellitus Bilateral wrist pain Polyuria Suicidal ideation Excessive anger Glaucoma GERD (gastroesophageal reflux disease) Surgical History H/O eye surgery No pertinent past surgical history Family History Father Diabetes Prostate cancer Mother History of stroke Diabetes Brother Heart attack Social History Housing: Apartment Alcohol intake: current Alcohol intake frequency: holidays/special occasions only Alcohol type: beer Comment: 1 beer Q 7 months Patient Tobacco Use Status: Former Tobacco user (chewing tobacco) Tobacco use type: Cigarette Years Smoked: stopped 16 years old e-Cigarette/Vaping Use: Never Used Second Hand Smoke Exposure: Yes service: No Current occupational status: disabled Cognitive needs: Yes (wheelchair, cane) Hearing needs: No Vision needs: Yes (glasses) Questionnaire PHQ-9 Over the last 2 weeks, how often have you been bothered by any of the following problems? 1. Little interest or pleasure in doing things: not at all 2. Feeling down, depressed, or hopeless: not at all 3. Trouble falling or staying asleep, or sleeping too much: not at all (falling asleep and staying asleep) 4. Feeling tired or having little energy: not at all 5. Poor appetite or overeating: not at all 6. Feeling bad about yourself - or that you are a failure or have let yourself or your family down: not at all 7. Trouble concentrating on things, such as reading the newspaper or watching television: not at all 8. Moving or speaking so slowly that other people could have noticed. Or the opposite - being so fidgety or restless that you have been moving around a lot more than usual: not at all 9. Thoughts that you would be better off or of hurting yourself in some way: not at all Total score: 0 Depression Screening Interpretation: Positive (referral entered to psych ) Depression Screening Follow-up: Existing condition Depression Screening Done: Yes 82652 - PHQ-9 Billing: Yes Source: Developed by Nishi Chavez Kurt Kroenke and colleagues, with an educational radha from [email or web address]. Thrive Questionnaire Date Thrive assessed: 07/20/24 I am a: Patient What is your living situation today?: I have a steady place to live Within the past 12 months, did the food you bought not last and you didn't have the money to get more?: Never true Within the past 12 months, did you worry whether your food would run out before you got money to buy more?: Never true Do you have trouble paying for medicines?: Yes Do you have trouble getting transportation to medical appointments?: Yes Do you have trouble paying your heating and electricity bill?: No Do you have trouble taking care of your child, family member or friend?: No Do you have trouble with day-to-day activities such as bathing, preparing meals, shopping, managing finances, etc.?: No Are you currently unemployed and looking for a job?: No Are you interested in more education?: No Please select the resources that you would like help with: Paying for medicine and Transportation Currently or been in a relationship where the following occur: No concerns reported THRIVE Score: 1 AUDIT C Alcohol Use Questionnaire (AUDIT-C) 1. How often do you have a drink containing alcohol?: Never 3. How often do you have six or more drinks on one occasion?: Never Total Score: 0 TEMI-7 AMB Questionnaire TEMI-7 Date TEMI - 7 assessed: 07/20/24 Feeling nervous, anxious, or on edge: 0 = Not at all Not being able to stop or control worryin = Not at all Worrying too much about different things: 0 = Not at all Trouble relaxin = Not at all Being so restless that it is hard to sit still: 0 = Not at all Becoming easily annoyed or irritable: 0 = Not at all Feeling afraid as if something awful might happen: 0 = Not at all Total TEMI-7 score (0-4 normal; 5-9 mild; 10-14 moderate; 15-21 severe): 0 Source: Developed by Nishi Chavez Kurt Kroenke and colleagues, with an educational radha from [email or web address]. Physical exam (Primary Care) Vital Signs: Last Vital Signs Pulse 84 07/20/24 15:40 BP 110/76 07/20/24 15:40 Pulse Ox 96 07/20/24 15:40 Oxygen Delivery Method Room Air 07/20/24 15:40 BMI result Body Mass Index 26.3 Tobacco/Smoking Status: Tobacco use Status Tobacco use date assessed 07/20/24 07/20/24 15:43 Patient Tobacco Use Status Former Tobacco user (chewing 07/20/24 15:43 tobacco) Tobacco use type Cigarette 07/20/24 15:43 e-Cigarette/Vaping Use Never Used 07/20/24 15:43 PHQ-9: PHQ-9 Score PHQ-9: Total score 0 07/20/24 16:03 Depression Screening Interpretation: Positive (referral entered to psych ) Depression Screening Follow-up: Existing condition Thrive Assessment: Date of Thrive Assessment Date Thrive assessed 07/20/24 07/20/24 15:43 Currently or been in a relationship where the following occur: No concerns reported Const General: alert; No acute distress Eyes Conjunctivae: conjunctivae normal Resp Auscultation: clear to auscultation bilaterally Cardio Rate: regular rate Rhythm: regular rhythm GI Inspection: Yes normal to inspection Extrem General: Yes normal to inspection and No edema Results AMB Hemoglobin A1c AMB Hemoglobin A1c 14 % Last Edit by HUY Spain on 07/20/24 16:04 Results Reviewed Results Reviewed: Laboratory Last Values Hgb A1c (Clinic) 14 % (4.0-6.0) H 07/20/24 15:54 Coding Level of Care Code Est Pt Level 4 (97010) Complex EM visit Add On G2211 Diagnoses Type 2 diabetes mellitus with hyperglycemia E11.65 Hypercholesterolemia E78.00 CAD (coronary artery disease) I25.10 History of CVA (cerebrovascular accident) Z86.73 Generalized anxiety disorder F41.1 COPD (chronic obstructive pulmonary disease) J44.9 Bilateral knee pain M25.561; M25.562 Additional Codes PHQ-9 - 21452 - PHQ-9 Billing: Yes ([id number]) Assessment & Plan Assessment & Plan (1) Type 2 diabetes mellitus with hyperglycemia: Comment: Eye and lasik 07/2023 Code(s): E11.65 - Type 2 diabetes mellitus with hyperglycemia Category: Medical Plan: Avoid the foods that causes that usually spicy foods, tomato products, juices, coffee, soda and foods that your sensitive to. After eating do not lie down, allow 3-4 hours before in lie down. And keep the head of bed above 30 degrees to avoid the acid from going up. Patient is supposed to be on Lantus 40 units lispro 6 units 3 times a day metformin at 500 twice a day (2) Hypercholesterolemia: Code(s): E78.00 - Pure hypercholesterolemia, unspecified Category: Medical Plan: Avoid fried foods, chicken skin, eggs, butter margarine, pastries and meat. Be it pork or beef they have a lot of cholesterol LDL goal of less than 70 and triglyceride of less than 150 patient needs blood work I do not see any cholesterol medication (3) CAD (coronary artery disease): Comment: 2022 Code(s): I25.10 - Atherosclerotic heart disease of kake coronary artery without angina pectoris Category: Medical Plan: Control the cholesterol, weight, blood pressure, diabetes patient is supposed to be on aspirin (4) History of CVA (cerebrovascular accident): Comment: 2015, side weakness and speech slurring Code(s): Z86.73 - Personal history of transient ischemic attack (TIA), and cerebral infarction without residual deficits Category: Medical Plan: Patient is supposed to be on aspirin. Control the cholesterol, weight, blood pressure, diabetes (5) Generalized anxiety disorder: Comment: [facility] referral done - awaiting Code(s): F41.1 - Generalized anxiety disorder Category: Medical Plan: Advise counseling and therapy (6) COPD (chronic obstructive pulmonary disease): Code(s): J44.9 - Chronic obstructive pulmonary disease, unspecified Category: Medical (7) Bilateral knee pain: Code(s): M25.561 - Pain in right knee; M25.562 - Pain in left knee Category: Medical Plan History of Present Illness The patient is a 54-year-old male presenting with a follow-up for chronic conditions management. He has poorly controlled diabetes mellitus, with an A1c of 14, indicating significant hyperglycemia, and currently experiences periods of noncompliance with his diabetic treatment regimen, which includes Lantus, Lispro, and Metformin. He has been managing coronary artery disease with aspirin therapy but recently lacked compliance with his ongoing preventative care. Alongside hypercholesterolemia, which lacks current medication management, the patient continues to deal with issues from a prior CVA, such as left-sided weakness and accompanying PTSD. His generalized anxiety disorder might affect his adherence to complex treatment regimens, and he suffers chronic migraines managed with Nyrtec. The patient also reports longstanding osteoarthritis-related knee pain exacerbated by a fall some months prior and seeks prescription knee braces for stiffness and discomfort. He uses albuterol for episodes of shortness of breath, consistent with chronic obstructive pulmonary disease from former cigar smoking. His requests include exploring additional COPD management, assessing his metabolic control through up-to-date lab work, and exploring preventative measures for potential prostate and thyroid conditions. Health Maintenance - Recommended pneumonia vaccination due to COPD history. - Discussed flu vaccine benefits; patient declined. - Discussed prostate and thyroid screening through blood work. - Emphasized the importance of blood glucose monitoring and weight management. - Addressed cardiovascular risk reduction through lifestyle and medication management. Social History - History of cigar smoking contributing to COPD; former smoker. - Reports noncompliance with dietary and medication recommendations for diabetes management. - Experiences shortness of breath with activity, requiring albuterol use. - Reports a diet that includes salads with added chicken and vegetables. Review of Systems - Respiratory: Reports shortness of breath on exertion. - Musculoskeletal: Reports chronic knee pain and occasional falls. - Neurological: Reports chronic migraines and post-CVA left-sided weakness. - Psychological: Reports PTSD and generalized anxiety disorder symptoms. Physical Exam Results - Labs: A1c 14%. Prior blood glucose level was 226 mg/dL. Creatinine at 0.71 mg/dL. Liver panel normal. Plan The patient's diabetes management will be adjusted with an increase in Lantus dosage while awaiting an endocrinology review. Potential initiation of cholesterol-lowering medication requires investigation due to previous LDL goals. A long-term inhaler for COPD management is recommended to reduce reliance on albuterol. Evaluation of osteoarthritis and knee pain will involve x-rays and prescription of supportive knee braces. Prostate and thyroid function will be assessed through blood work, and vaccination for pneumonia is advised, recognizing current deferral by the patient. Patient was informed and verbally consented to the use of an ambient scribe for clinic note documentation during this visit. 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 We reviewed the need for cholesterol management, suggesting lipid-lowering therapy to achieve desired LDL levels. The patient consented to the addition of a long-term inhaler for COPD to complement albuterol usage. The discussion included the purpose of proposed x-rays and the benefits of knee braces for arthritic pain. The patient understood and agreed to the plan for screening tests to assess possible prostate and thyroid issues. Although the pneumonia vaccine was discussed as beneficial due to his COPD, the patient chose to defer upon this recommendation. I emphasized the significance of adhering to lifestyle modifications to manage existing cardiac and respiratory risks effectively. Patient Instructions - Increase Lantus to 45 units once daily; continue Lispro and Metformin as instructed. - Follow up with tank crewmember on the 13 for detailed diabetic plan. - Await x-rays for knee pain and secure knee braces from supply store. - Begin using the prescribed long-term inhaler for COPD management. - Undergo lab tests for blood sugar, prostate, and thyroid function. - Consider cholesterol medications as per future discussions based on lab outcomes. - Maintain healthy diet changes focusing on low carbohydrates and sugar intake. - Increase hydration, especially if experiencing high glucose symptoms. Orders: Orders AMB Hemoglobin A1c Today Z13.9 - Encounter for screening, unspecified PFT pulmonary function test Today J44.9 - Chronic obstructive pulmonary disease, unspecified Vitamin D 25-OH (D2 and D3) Today E11.65 - Type 2 diabetes mellitus with hyperglycemia, E78.00 - Pure hypercholesterolemia, unspecified, F09 - Unspecified mental disorder due to known physiological condition, I25.10 - Atherosclerotic heart disease of kake coronary artery without angina pectoris, R06.02 - Shortness of breath Creatinine Urine Today E11.65 - Type 2 diabetes mellitus with hyperglycemia, J44.9 - Chronic obstructive pulmonary disease, unspecified XR knee standing BI Today M25.561 - Pain in right knee, M25.562 - Pain in left knee Medications: New budesonide-formoterol 160-4.5 mcg/actuation (Symbicort) 2 puffs inhalation BID 10.2 grams 4RF J44.9 - Chronic obstructive pulmonary disease, unspecified [ACL knee brace] As directed 2 ea 0RF bilateral M25.561 - Pain in right knee, M25.562 - Pain in left knee Changed From insulin lispro as directed sliding scale 6 units (0.06 mL) subcut TID 15 mL 3RF E11.9 - Type 2 diabetes mellitus without complications To insulin lispro as directed sliding scale 6 units (0.06 mL) subcut BID 15 mL 3RF E11.9 - Type 2 diabetes mellitus without complications From metformin 500 mg PO BID 180 tabs 1RF R06.02 - Shortness of breath To metformin [facility] ENDO 500 mg PO .QD 90 tabs 1RF R06.02 - Shortness of breath
--- OUTSIDE RECORDS SUMMARY | 2024-07-20 18:55 | XMS_ITS | Continuity of Care Document ---
Author Organization [employer] Address [address] [place] [id number] Care Team Providers Care Head Boys Golf Coach Name Role Phone HIM [facility] OTHER Assessment Encounter Date Assessment Date Assessment LastModified by Organization Details LastModified Time 07/15/2024 07/15/2024 I have reviewed and agree with the assessment and plan as documented by the research interviewer. I provided real-time medical direction for this encounter and was immediately available to provide additional phone-based assistance as needed. HPI: 54M presenting with glucose sensor. Pt picked us sensors yesterday and appears to be malfunctioning today. Is on sliding scale insulin TID. Last time this happened pt did not check glucose for 2 months. Otherwise well appearing, no concerns, no symptoms. VSS. Exam otherwise unremarkable per the research interviewer. Device reading . Impression/Plan: Malfunctioning glucose sensor. Pt does have another sensor available to try, and has 2 refills at pharmacy. Will check CGM today for his evening dose of insulin. Advised to call pharmacy if he needs repeat refill. We discussed the diagnostic uncertainty of home visits and the risk associated with this. In this case, the patient and I felt this to be an acceptable and reasonable amount of risk given the benefit of avoiding an ED visit. We discussed the need to seek care urgently/emergent ly in the setting of any new or worsening serious symptoms, particularly weakness, dizziness, fever, chills, CP, SOB, worsening diarrhea, nausea, vomiting or any other concern paysola Not available 07/15/2024 17:54:31 Plan of Treatment Reminders Order Date Submit Date Provider Last Modified By Organization Details Last Modified Time Details Appointments None record ed. Lab None record ed. Referral None record ed. Procedures None record ed. Surgeries None record ed. Imaging None record ed. Medication Orders None record ed. Patient TargetsNo targets recorded. Patient InstructionsNo instructions recorded. Reason for Referral None Reported. Medical Equipment None Reported. Allergies No known drug allergies Medications Name Sig Start Date Stop Date Status Note LastModified by Organization Details LastModified Time latanoprost 0.005 % eye drops active Not Available Not Available Not Available metformin 500 mg tablet TAKE 1 TABLET BY MOUTH TWICE A DAY active Not Available Not Available No t Available triamcinolon e acetonide 0.5 % topical cream APPLY 1 APPLICATION TOPICALLY 2 TIMES A DAY active Not Available Not Available Not Available BD Ultra-Fine Mini Pen Needle 31 gauge x 3/16 DIRECTED active Not Available Not Available Not Available Lantus Solostar U-100 Insulin 100 unit/mL (3 mL) subcutaneous pen INJECT 40 UNITS SUBCUTANEOU SLY 2 TIMES A DAY active Not Available Not Available No t Available Humalog KwikPen (U-100) Insulin 100 unit/mL subcutaneous INJECT 6 UNITS SUBCUTANEOU SLY 3 TIMES A DAY DIRECTED SLIDING SCALE active Not Available Not Available No t Available dorzolamide- timolol (PF) 2 %-0.5 % eye drops in a dropperette active Not Available Not Available Not Available OneTouch Delica Plus Lancing Device kit TEST BLOOD GLUCOSE LEVELS UPON WAKING, PRIOR TO MEALS, AND BEFORE SLEEP active Not Available Not Available No t Available FreeStyle Ambika 2 Sensor kit DIRECTED active Not Available Not Availab le Not Available FreeStyle Ambika 2 [place] USE DIRECTED active Not Available Not Available No t Available Vitals Date Recorded Heart rate Oxygen saturation Oxygen saturation in Arterial blood by Pulse oximetry Respiratory rate Systolic blood pressure Diastolic blood pressure Provider Name and Address Organization Details Last Updated DateTime 5 84 /min 98 % 98 % 16 /min 130 mm[Hg] 78 mm[Hg] Not Available [facility] - production 5 17:35:44 Social History None recorded. Functional Status None recorded. Mental Status None recorded. Family History Nothing Reported. Medical History No medical history recorded. Past Encounters Encounter ID Performer Location Encounter Start Date Encounter Closed Date Diagnosis/Indication Diagnosis SNOMED-CT Code Diagnosis ICD10 Code Diagnosis Note [id number] Lakshmi Redmond MD [facility] [address] [place] [phone] 07/15/2024 17:35:42 07/15/2024 21:14:45 Mechanical complication of device [id number] T85.614A Health Concerns Section Related Observation LastModified by Organization Detai ls LastModified Time None Recorded Concern Status LastModified by Organization Details LastModified Time None Recorded Payers Encounter Date Sequence Insurance Name Policy Number Policy Jacome Covered Member ID Jacome Member ID Guarantor Name 07/15/2024 1 [facility] - DOS ON OR AFTER 2022 - DUAL ELIGIBLE - [employer] OPT[employer] AND ONE C[employer] (MEDICARE REPLACEMENT/ADV ANTAGE - HMO) Talha Ozzy [id number] Talha Preciado Notes Date Note Type Note Provider Name and Address Organization Details Recorded Time 07/15/2024 text/html HPI: Member states he received his sensors yesterday. The sensor he had on yesterday. Member states he applied a new one this am and it first said to wait an hour. Now he has a new message that states sensor is and now it does not give a reading. Member states this is the first time this happens and does not want to change it because he will then be low on his supply before he can get his refill. Member needs assistance with his sensor device. .................. .................. .................. .................. .................. .................. .................. ............... [facility] Nurse Triage Notes (Maureen Otto): Reason For Request: diabetes Chief Complaints: Diabetes Related PMH: Diabetes Mellitus Type 1, Depression, Obesity PMH Reviewed at 07/15/2024 - 15:58 Allergies Reviewed at 07/15/2024 - 15:58 Comments: HPI reviewed .................. .................. .................. .................. .................. .................. .................. ............... Goldsmith Apprentice Note From Jose Kwok: Dispatched to above address for malfunction of diabetes sensor. On arrival patient 54 y/o M, , met SC8 at the door, walking unassisted with normal gait, AOX4, airway patent, speaking in full sentences, good color, in no apparent distress. 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 Patients vital signs checked. [facility] contacted, unsure how to troubleshoot, on records check patient has several refills and should not have an issue getting a replacement, recommends calling PCP and pharmacy about the issue. Patients BGL checked, replaced sensor with new one. Patient will follow up with PCP and pharmacy. Patient has no additional questions or concerns at this time. SC8 clear. [facility]. .................. .................. .................. .................. .................. .................. .................. ............... [facility] [place]: Lakshmi Redmond .................. .................. .................. .................. .................. .................. .................. ............... Disposition: Fulfilled Lakshmi Redmond MD [address] [facility],[address], [place], [address], DEJA ALDRIDGE 07/15/2024 21:22:07
--- OUTSIDE RECORDS SUMMARY | 2024-07-20 18:55 | XMS_ITS | Data Portability ---
Author Organization [employer] [facility] [employer] Address [address] [place] [phone] Care Team Providers Care Head Inspector And Center Marker Name Role Phone HIM CCA OTHER Assessment Encounter Date Assessment Date Assessment LastModified by Organization Details LastModified Time 07/15/2024 07/15/2024 I have reviewed and agree with the assessment and plan as documented by the general manager food. I provided real-time medical direction for this [...] symptoms. VSS. Exam otherwise unremarkable per the general manager food. Device reading . Impression/Plan: Malfunctioning glucose sensor. [...] Availab le Not Available FreeStyle Ambika 2 [place] USE DIRECTED active Not Available Not Available No t Available Vitals Date Recorded Heart rate Oxygen saturation Oxygen saturation in Arterial blood by Pulse oximetry Respiratory rate Systolic blood pressure Diastolic blood pressure Provider Name and Address Organization Details Last Updated DateTime 5 84 /min 98 % 98 % 16 /min 130 mm[Hg] 78 mm[Hg] Not Available [facility] - production 5 17:35:44 Social History None recorded. Functional Status None recorded. Mental Status None recorded. Family History Nothing Reported. Medical History No medical history recorded. Past Encounters Encounter ID Performer Location Encounter Start Date Encounter Closed Date Diagnosis/Indication Diagnosis SNOMED-CT Code Diagnosis ICD10 Code Diagnosis Note [id number] Lakshmi Redmond MD [facility] [address] [place] [phone] 07/15/2024 17:35:42 07/15/2024 21:14:45 Mechanical complication of device [id number] T85.614A Health Concerns Section Related Observation LastModified by Organization Detai ls LastModified Time None Recorded Concern Status LastModified by Organization Details LastModified Time None Recorded Advance Directives Directive None Recorded Payers Encounter Date Sequence Insurance Name Policy Number Policy Jacome Covered Member ID Jacome Member ID Guarantor Name 07/15/2024 1 [facility] - DOS ON OR AFTER 2022 - DUAL ELIGIBLE - DETENTION OPTIONS AND ONE CARE (MEDICARE REPLACEMENT/ADV ANTAGE - HMO) Talha Ozzy [id number] Talha Ozzy Notes Date Note Type Note Provider Name [...] 1, Depression, Obesity PMH Reviewed at 07/15/2024 15:58 Allergies Reviewed at 07/15/2024 - 15:58 Comments: HPI reviewed .................. .................. .................. .................. .................. .................. .................. ............... Relief Operator Note From Jose Kwok: Dispatched to above address for malfunction of diabetes sensor. On arrival patient 54 y/o M, , met SC8 at the door, walking unassisted with normal gait, AOX4, airway patent, speaking in full sentences, good color, in no apparent distress. 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 .................. .................. .................. .................. .................. ............... [facility] [place] Consulted: Lakshmi Redmond .................. .................. .................. .................. .................. .................. .................. ............... Disposition: Fulfilled Lakshmi Redmond MD [address] [facility],[address], [place], [phone], DEJA ALDRIDGE 07/15/2024 21:22:07
--- OUTSIDE RECORDS SUMMARY | 2024-07-20 18:55 | XMS_ITS | Clinical Summary ---
Author Organization [employer] Address [address] [facility] [address] [place] [address] Care Team Providers Care Human Resources Assistant Name Role Phone Unavailable Primary Care Provider Unavailabl e Social History Tobacco Use Types Packs/Day Years Used Date Smoking Tobacco: Never Assessed Sex and Gender Information Value Date Recorded Sex Assigned at Male 02/04/2023 3:17 PM EDT Legal Sex Male 10:48 AM EDT Gender Identity Male 02/04/2023 3:17 PM EDT Sexual Orientation Not on file Plan of Treatment Health Maintenance Due Date Last Done Comments CT Colonography 1969 Colonoscopy 1969 Colorectal Cancer Screening 1969 Depression Screening 1969 FIT DNA/Cologuard 1969 FIT 1969 FOBT 1969 HIV Screening 1969 Lipid Panel 1969 SDOH Screening 1969 Sigmoidoscopy 1969 Alcohol/Substance Use Screening 1981 Tobacco Screening 1981 Hepatitis C Screening 1987 DTaP/Tdap/Td Vaccines (1 - Tdap) 1988 Hepatitis B Vaccines (1 of 3 - 19+ 3-dose series) 1988 Pneumococcal Vaccine: 50+ Ye ars (1 of 1 - PCV) 2019 Zoster Vaccines (1 of 2) 2019 COVID-19 Vaccine ( - 2023-2 5 season) 2024 Influenza Vaccine (#1) 2024 RSV Patients and Pa tients Aged 60 years or older (1 - 1-dose 75+ series) 2044 HIB Vaccines Aged Out No longer eligi ble based on patient's age to complete this topic HPV Vaccines Aged Out No longer eligi ble based on patient's age to complete this topic Hepatitis A Vaccines Aged Out No long er eligible based on patient's age to complete this topic IPV Vaccines Aged Out No longer eligi ble based on patient's age to complete this topic Meningococcal Vaccine Aged Out No tashi christine eligible based on patient's age to complete this topic RSV under 20 months Aged Out No longe r eligible based on patient's age to complete this topic Rotavirus Vaccines Aged Out No longer eligible based on patient's age to complete this topic Insurance * Guarantor: Talha Preciado Account Type Relation to Patient Date of Phone Billing Address Personal/Family Self 1970 [address] [facility] [address] [place] [address] [facility]
--- OUTSIDE RECORDS SUMMARY | 2024-07-20 18:55 | XMS_ITS | Encounter Summary ---
Author Organization [employer] Address [address] [facility] [address] [place] [address] Care Team Providers Care Construction Safety Consultant Name Role Phone Unavailable Primary Care Provider Unavailabl e Reason for Visit * Reason Onset Date Comments New Patient 02/04/2023 Encounter Details Date Type Department Care Team (Late st Contact Info) Description 02/04/2023 Telephone [facility] MED[facility] [address] [place] [address] Yasir Galindo MD [address] [place], [place] [phone] New Patient Social History Tobacco Use Types Packs/Day Years Used Date Smoking Tobacco: Never Assessed Sex and Gender Information Value Date Recorded Sex Assigned at Male 02/04/2023 3:17 PM EDT Legal Sex Male 10:48 AM EDT Gender Identity Male 02/04/2023 3:17 PM EDT Sexual Orientation Not on file documented as of this encounter Miscellaneous Notes * Telephone Encounter - Elan Latham - 02/04/2023 3:20 PM EDT 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 EFFECTIVE SINCE 01/08/2023 documented in this encounter Plan of Treatment Not on file documented as of this encounter Visit Diagnoses Not on filedocumented in this encounter
== END 2024-07-20 16:27 | disposition home or self-care (01) ==
LOC: HO.HMCH 15:36
PROVIDERS: PCP Internal Medicine; Visit Provider Internal Medicine
DX: E11.65 Type 2 diabetes mellitus with hyperglycemia (principal); J44.9 Chronic obstructive pulmonary disease, unspecified; E78.00 Pure hypercholesterolemia, unspecified; I25.10 Atherosclerotic heart disease of native coronary artery without angina pectoris; Z86.73 Personal history of transient ischemic attack (TIA), and cerebral infarction without residual deficits; F41.1 Generalized anxiety disorder; M25.561 Pain in right knee; M25.562 Pain in left knee

== ENCOUNTER → 2024-07-20 15:36 | Outpatient (BNVA) | payer OTHER, SELFPAY | PROVIDERS: PCP Internal Medicine; Visit Provider Internal Medicine | DX: E11.65 Type 2 diabetes mellitus with hyperglycemia (principal); E78.00 Pure hypercholesterolemia, unspecified; I25.10 Atherosclerotic heart disease of native coronary artery without angina pectoris; F41.1 Generalized anxiety disorder; J44.9 Chronic obstructive pulmonary disease, unspecified; M25.561 Pain in right knee; M25.562 Pain in left knee; Z86.73 Personal history of transient ischemic attack (TIA), and cerebral infarction without residual deficits | CPT/HCPCS: 83036; 96127; 99212 ==

== ENCOUNTER 2024-07-24 10:26 | Outpatient (REF) | payer OTHER, SELFPAY ==
--- NOTE | ~2024-07-24 | XR_ITS ---
EXAMINATION: XR KNEES ANTEROPOSTERIOR STANDING BILATERAL HISTORY: M25.561 - Pain in right knee COMPARISON: Comparison is made with the prior examination of the knees dated 04/10/2023. FINDINGS: Standing AP views of both knees are submitted. Osseous mineralization is normal. No fracture is seen on these AP views. The medial and lateral compartments are maintained. XR/XR knee standing BI IMPRESSION: Unremarkable standing AP view of both knees. Electronically signed by: Zi Brody MD 07/26/2024 03:11 PM EDT
[2024-07-24 10:47] LABS: MANUAL DIFF FLAG NO
[2024-07-24 11:03] LABS: Basophils Percent Auto 0.3 % (0-2); Eosinophils Absolute Auto 0.2 X10*3/uL (0.0-0.4); Eosinophils Percent Auto 3.8 % (0-4); Hematocrit 44.1 % (42.0-52.0); Hemoglobin 15.6 g/dl (14.0-18.0); Imm Gran Abs Auto 0.01 X10*3/uL (0.00-0.03); Imm Gran Pct Auto 0.2 % (0.0-0.4); Lymphocytes Absolute Auto 2.2 X10*3/uL (1.2-4.9); Lymphocytes Percent Auto 37.5 % (20-40); Mean Corpuscular HGB Conc 35.4 g/dl (31.0-36.0); Mean Corpuscular Hemoglobin 28.9 pg (27.0-33.0); Mean Corpuscular Volume 81.7 fL (80.0-98.0); Mean Platelet Volume 9.3 fL (9.4-12.4); Monocytes Absolute Auto 0.4 X10*3/uL (0.1-1.2); Monocytes Percent Auto 6.8 % (2-11); Neutrophils Absolute Auto 2.9 x10*3/uL (2.0-8.3); Neutrophils Percent Auto 51.4 % (45-73); Platelet Count 300 X10*3/uL (160-400); Red Cell Distribution Width 12.3 % (11.0-16.0); White Blood Count 5.7 X10*3/uL (4.8-10.8)
[2024-07-24 11:53] LABS: Microalbum/Creatinine Ratio Ur 22.7 ug/mg cr (<30)
[2024-07-24 12:09] LABS: Alanine Aminotransferase 18 U/L (0-40); Albumin Level 3.9 g/dL (3.5-5.0); Alkaline Phosphatase 111 U/L (39-117); Anion Gap 12 (12-20); Aspartate Amino Transferase 19 U/L (5-37); Bilirubin Total 0.4 mg/dL (0.0-1.0); Blood Urea Nitrogen 12 mg/dL (9-16); Calcium 9.1 mg/dL (8.4-10.2); Carbon Dioxide 25 mmol/L (22-29); Chloride 106 mmol/L (96-108); Cholesterol 214 mg/dL (<200); Estimated Glomerular Filt Rate > 60; Glucose Random 277 mg/dL (60-115); HDL Cholesterol 56 mg/dL (>40); LDL Cholesterol Calculated 125 mg/dL (<100); Potassium 4.2 mmol/L (3.3-5.1); Sodium 139 mmol/L (135-145); Thyroid Stimulating Hormone 0.61 uIU/mL (0.32-4.0); Total Protein 7.5 g/dL (6.5-8.0); Triglycerides 165 mg/dL (<150)
[2024-07-24 12:20] LABS: Folate 11.5 ng/mL (> or = 4.0); Prostate Specific Antigen Scr 0.59 ng/mL (<0.05-4.0); Vitamin B12 516 pg/mL (200-900)
[2024-07-28 22:03] LABS: Vitamin D 25-OH, D2 <4 ng/mL; Vitamin D 25-OH, D3 19 ng/mL; Vitamin D 25-OH, Total 19 ng/mL (30-100)
== END 2024-07-24 10:27 | disposition home or self-care (01) ==
LOC: HO.LAB 10:26
PROVIDERS: PCP Internal Medicine; Visit Provider Internal Medicine
DX: E11.65 Type 2 diabetes mellitus with hyperglycemia (principal); F09 Unspecified mental disorder due to known physiological condition; I25.10 Atherosclerotic heart disease of native coronary artery without angina pectoris; R06.02 Shortness of breath; E78.00 Pure hypercholesterolemia, unspecified; M25.561 Pain in right knee; M25.562 Pain in left knee; Z12.5 Encounter for screening for malignant neoplasm of prostate
CPT/HCPCS: 36415; 73565; 80053; 80061; 82043; 82306; 82570; 82607; 82746; 84153; 84439; 84443; 85025

== ENCOUNTER → 2024-07-24 10:50 | Outpatient (BNV) | payer OTHER, SELFPAY | PROVIDERS: PCP Internal Medicine; Visit Provider Radiology Diagnostic Radiology | DX: M25.561 Pain in right knee (principal) | CPT/HCPCS: 73565 ==

== ENCOUNTER 2024-10-25 16:54 | Outpatient (AMB) | payer OTHER, SELFPAY ==
[2024-10-25 17:04] VITALS: BP 90/66; PULSE 94; TEMP 36.2; O2SAT 96; BMI 24.9
--- NOTE | 2024-10-25 17:04 | A.OFFPC_ITS ---
Vital Signs 10/25/24 17:04 Height 5 ft 11 in Weight 178 lb 6 oz BMI 24.9 BP 90/66 Blood Pressure Location Lt brachial Position Sitting Pulse 94 Pulse Source Pulse Oximeter Temp 97.1 F Temp Source Temporal Artery Scan Pulse Oximetry (%) 96 Oxygen Delivery Method Room Air Intake Visit Reasons: DM Bar Finish Operator Required: No Accompanied by: Self / Same As Patient Allergies No Known Allergies Allergy (Verified 10/25/24 17:10) Medication List - Last Reconciled 10/25/24 by Russell Rick MD [ACL knee brace As directed] albuterol sulfate 90 mcg/actuation 1 inh inhalation QID PRN blood sugar diagnostic (FreeStyle Lite Strips) As directed check the BS TID blood-glucose meter (FreeStyle Lite Meter kit) Use daily As directed to check blood sugars blood-glucose meter (FreeStyle Lite Meter kit) Use daily As directed to check blood sugars blood-glucose sensor (Dexcom G7 Sensor device) As directed blood-glucose,air intelligence specialist,cont (Dexcom G7 Foreign Language Professor) As directed budesonide-formoterol 160-4.5 mcg/actuation (Symbicort) 2 puffs inhalation BID cane As directed dorzolamide-timolol (PF) 2-0.5 % 1 drp ophthalmic (eye) BID insulin glargine (Lantus Solostar U-100 Insulin) 40 units (0.4 mL) subcut BID insulin lispro 6 units (0.06 mL) subcut BID lancets (FreeStyle Lancets) use BID as directed to check blood glucose latanoprost 0.005% drps ophthalmic (eye) meclizine 25 mg PO TID [mens pull ups As directed 3-4 times per day ] metformin 500 mg PO .QD miscellaneous medical supply 1 ea miscellaneous ONCE miscellaneous medical supply 1 ea miscellaneous ONCE pen needle, diabetic 5 times per day MDD 5 times per day with insulin rimegepant (Nurtec ODT) 75 mg PO ONCE PRN 30 days MDD 1 tab rosuvastatin 10 mg PO DAILY trazodone 50 mg PO BEDTIME PRN triamcinolone acetonide 0.5% 1 appl topical BID walker (Ultra-Light Rollator mis) rollator walker with seat. [washable bed pads As directed] Tobacco use date assessed: 07/20/24 Dental Screening Dental Screen Date: 07/20/24 [facility] Medical History (Updated 10/25/24 @ 17:32 by Russell Rick MD) Obesity (BMI 30-39.9) Depression Type 2 diabetes mellitus Bilateral wrist pain Polyuria Suicidal ideation Excessive anger Glaucoma GERD (gastroesophageal reflux disease) Surgical History H/O eye surgery No pertinent past surgical history Family History Father Diabetes Prostate cancer Mother History of stroke Diabetes Brother Heart attack Social History Housing: Apartment Alcohol intake: current Alcohol intake frequency: holidays/special occasions only Alcohol type: beer Comment: 1 beer Q 7 months Patient Tobacco Use Status: Former Tobacco user (chewing tobacco) Tobacco use type: Cigarette Years Smoked: stopped 16 years old e-Cigarette/Vaping Use: Never Used Second Hand Smoke Exposure: Yes service: No Current occupational status: disabled Cognitive needs: Yes (wheelchair, cane) Hearing needs: No Vision needs: Yes (glasses) Questionnaire PHQ-9 Over the last 2 weeks, how often have you been bothered by any of the following problems? 1. Little interest or pleasure in doing things: nearly every day 2. Feeling down, depressed, or hopeless: more than half the days 3. Trouble falling or staying asleep, or sleeping too much: nearly every day 4. Feeling tired or having little energy: nearly every day 5. Poor appetite or overeating: nearly every day 6. Feeling bad about yourself - or that you are a failure or have let yourself or your family down: not at all 7. Trouble concentrating on things, such as reading the newspaper or watching television: nearly every day 8. Moving or speaking so slowly that other people could have noticed. Or the opposite - being so fidgety or restless that you have been moving around a lot more than usual: more than half the days 9. Thoughts that you would be better off or of hurting yourself in some way: not at all Total score: 19 Source: Developed by Drs. Zi Hidalgo, Dariusz Grag and colleagues, with an educational radha from [employer]. Thrive Questionnaire Date Thrive assessed: 07/20/24 I am a: Patient What is your living situation today?: I have a steady place to live Within the past 12 months, did the food you bought not last and you didn't have the money to get more?: Often true Within the past 12 months, did you worry whether your food would run out before you got money to buy more?: Often true Do you have trouble paying for medicines?: No Do you have trouble getting transportation to medical appointments?: No Do you have trouble paying your heating and electricity bill?: Yes Do you have trouble taking care of your child, family member or friend?: No Do you have trouble with day-to-day activities such as bathing, preparing meals, shopping, managing finances, etc.?: Yes Are you currently unemployed and looking for a job?: No Are you interested in more education?: No Please select the resources that you would like help with: Food and WhoAPI Currently or been in a relationship where the following occur: I choose not to answer THRIVE Score: 3 AUDIT C Alcohol Use Questionnaire (AUDIT-C) 1. How often do you have a drink containing alcohol?: Monthly or less 2. How many drinks containing alcohol do you have on a typical day when you are drinking?: 1 or 2 3. How often do you have six or more drinks on one occasion?: Monthly Total Score: 3 TEMI-7 AMB Questionnaire TEMI-7 Date TEMI - 7 assessed: 07/20/24 Feeling nervous, anxious, or on edge: 3 = Nearly every day Not being able to stop or control worryin = Nearly every day Worrying too much about different things: 2 = More than half the days Trouble relaxin = Nearly every day Being so restless that it is hard to sit still: 3 = Nearly every day Becoming easily annoyed or irritable: 3 = Nearly every day Feeling afraid as if something awful might happen: 1 = Several days Total TEMI-7 score (0-4 normal; 5-9 mild; 10-14 moderate; 15-21 severe): 18 Source: Developed by Drs. Zi Hidalgo, Dariusz Garg and colleagues, with an educational radha from [employer]. Physical exam (Primary Care) Vital Signs: Last Vital Signs Temp 97.1 F 10/25/24 17:04 Pulse 94 10/25/24 17:04 BP 90/66 10/25/24 17:04 Pulse Ox 96 10/25/24 17:04 Oxygen Delivery Method Room Air 10/25/24 17:04 BMI result Body Mass Index 24.9 Tobacco/Smoking Status: Tobacco use Status Tobacco use date assessed 07/20/24 10/25/24 17:08 Patient Tobacco Use Status Former Tobacco user (chewing 10/25/24 17:08 tobacco) Tobacco use type Cigarette 10/25/24 17:08 e-Cigarette/Vaping Use Never Used 10/25/24 17:08 PHQ-9: PHQ-9 Score PHQ-9: Total score 19 10/25/24 17:25 Thrive Assessment: Date of Thrive Assessment Date Thrive assessed 07/20/24 10/25/24 17:08 Currently or been in a relationship where the following occur: I choose not to answer Const General: alert; No acute distress Eyes Conjunctivae: conjunctivae normal Resp Auscultation: clear to auscultation bilaterally Cardio Rate: regular rate Rhythm: regular rhythm GI Inspection: Yes normal to inspection Extrem General: Yes normal to inspection and No edema Results AMB Hemoglobin A1c AMB Hemoglobin A1c > 14.0 % Last Edit by RALPH Murray on 10/25/24 17:14 Results Reviewed Results Reviewed: Laboratory Last Values Hgb A1c (Clinic) > 14.0 % H* 10/25/24 17:14 Coding Level of Care Code Est Pt Level 4 (23902) Complex EM visit Add On G2211 Diagnoses Type 2 diabetes mellitus with hyperglycemia E11.65 Hypercholesterolemia E78.00 CAD (coronary artery disease) I25.10 Generalized anxiety disorder F41.1 COPD (chronic obstructive pulmonary disease) J44.9 Insomnia G47.00 Assessment & Plan Assessment & Plan (1) Type 2 diabetes mellitus with hyperglycemia: Comment: Eye and lasik 07/2023 Code(s): E11.65 - Type 2 diabetes mellitus with hyperglycemia Category: Medical Plan: Decrease the amount of carbohydrate intake, pasta, bread, rice and potatoes are all sugar and that is aside from all the sweet stuff, remember that fruits are good but they are Sweet also. Hemoglobin A1c goal of less than 6.5 patient is on Lantus at 40 units once a day metformin 500 mg once a day. Had a long discussion with the patient with regards to getting the diabetes under better control. Discussed about dose escalation of the Lantus additional 3 units each time the blood sugars are above 150 for the whole day. Discussed about Ophthalmology discussed about endocrinology referral. (2) Hypercholesterolemia: Code(s): E78.00 - Pure hypercholesterolemia, unspecified Category: Medical Plan: Avoid fried foods, chicken skin, eggs, butter margarine, pastries and meat. Be it pork or beef they have a lot of cholesterol LDL goal of less than 70 and triglyceride of less than 150 presently no medication (3) CAD (coronary artery disease): Comment: CT 2022 Code(s): I25.10 - Atherosclerotic heart disease of kenaitze coronary artery without angina pectoris Category: Medical Plan: Control the cholesterol, weight, blood pressure, diabetes patient needs to be on aspirin 81 mg once a day (4) Generalized anxiety disorder: Comment: [facility] referral done - awaiting Code(s): F41.1 - Generalized anxiety disorder Category: Medical Plan: Patient has been referred to counseling (5) COPD (chronic obstructive pulmonary disease): Code(s): J44.9 - Chronic obstructive pulmonary disease, unspecified Category: Medical Plan: Continue with albuterol and Symbicort and rinse mouth after using (6) Insomnia: Code(s): G47.00 - Insomnia, unspecified Category: Medical Plan History of Present Illness The patient is a 54-year-old male presenting with management of diabetes mellitus, hypercholesterolemia, and coronary artery disease. The patient has a history of diabetes mellitus with a recent blood sugar level of 277 mg/dL and a hemoglobin A1c of more than 14%. He is currently on Lantus 40 units once a day and Metformin 500 mg once a day. The goal is to achieve a hemoglobin A1c of less than 6.5%. The patient also has hypercholesterolemia with an LDL level of 125 mg/dL and triglycerides at 165 mg/dL. The target is to reduce LDL to less than 100 mg/dL and triglycerides to less than 150 mg/dL. He has a history of coronary artery disease and is advised to take aspirin 81 mg once a day. The patient has been referred to counseling for generalized anxiety disorder. The patient has chronic obstructive pulmonary disease and is advised to continue using albuterol and Symbicort, ensuring to rinse his mouth after use. Health Maintenance - Referral to endocrinology for diabetes management - Eye exam recommended annually - Discussion of pneumonia and shingles vaccinations Social History - Reports dietary changes including reduced intake of greasy foods such as borrero and sausage, opting for scrambled eggs and toast. - Frequent consumption of meals from a Spanish store, with a preference for low salt and pepper. Review of Systems - General: Reports weight loss of 10 pounds. - Endocrine: Reports difficulty controlling blood sugar levels. - Respiratory: Reports difficulty sleeping, often waking early. - Psychiatric: Reports anxiety and has been referred to counseling. Physical Exam Results - Labs: Blood sugar 277 mg/dL, Hemoglobin A1c > 14%, LDL 125 mg/dL, Triglycerides 165 mg/dL. - Labs: Normal blood count, normal electrolytes, normal renal function. Plan The management plan for diabetes mellitus includes maintaining the current regimen of Lantus 40 units and Metformin 500 mg daily, with a target hemoglobin A1c of less than 6.5%. The patient is advised to follow up with endocrinology for further management. For hypercholesterolemia, the goal is to reduce LDL to less than 100 mg/dL and triglycerides to less than 150 mg/dL. The patient is currently not on medication for cholesterol management, and a follow-up is planned in three months to reassess lipid levels. In terms of coronary artery disease, the patient is advised to take aspirin 81 mg daily. The patient has been referred to counseling to address generalized anxiety disorder. For chronic obstructive pulmonary disease, the patient should continue using al buterol and Symbicort, ensuring to rinse the mouth after use. Patient was informed and verbally consented to the use of an ambient scribe for clinic note documentation during this visit. Discussion Notes During the visit, we discussed the management of diabetes mellitus, emphasizing the importance of maintaining a hemoglobin A1c below 6.5% and the need for endocrinology follow-up. We also reviewed the goals for cholesterol management, with a plan to reassess in three months. The patient was advised on the use of aspirin for coronary artery disease and referred to counseling for anxiety man agement. Patient Instructions - Continue taking Lantus 40 units and Metformin 500 mg daily. - Follow up with endocrinology for diabetes management. - Aim to reduce LDL to less than 100 mg/dL and triglycerides to less than 150 mg/dL. - Take aspirin 81 mg daily for coronary artery disease. - Continue using albuterol and Symbicort, and rinse mouth after use. - Attend counseling sessions for anxiety management. Orders: Orders AMB Hemoglobin A1c Today E11.65 - Type 2 diabetes mellitus with hyperglycemia Hemoglobin A1c 3 Months E11.65 - Type 2 diabetes mellitus with hyperglycemia Comprehensive Met. Panel 3 Months E11.65 - Type 2 diabetes mellitus with hyperglycemia Lipid Panel 3 Months E11.65 - Type 2 diabetes mellitus with hyperglycemia, E78.00 - Pure hypercholesterolemia, unspecified Referrals Endocrinology Referral E11.65 - Type 2 diabetes mellitus with hyperglycemia Ophthalmology Referral E11.65 - Type 2 diabetes mellitus with hyperglycemia Medications: New rosuvastatin 10 mg PO DAILY 30 tabs 3RF E78.00 - Pure hypercholesterolemia, unspecified blood sugar diagnostic (FreeStyle Lite Strips) As directed check the BS TID 300 ea 3RF E11.65 - Type 2 diabetes mellitus with hyperglycemia, E11.9 - Type 2 diabetes mellitus without complications trazodone 50 mg PO BEDTIME PRN 30 tabs 3RF sleep G47.00 - Insomnia, unspecified
--- OUTSIDE RECORDS SUMMARY | 2024-10-25 18:06 | XMS_ITS | Encounter Summary ---
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 EFFECTIVE SINCE 01/08/2023 documented in this encounter Plan of Treatment Not on file documented as of this encounter Visit Diagnoses Not on filedocumented in this encounter
== END 2024-10-25 17:52 | disposition home or self-care (01) ==
LOC: HO.HMCH 16:55
PROVIDERS: PCP Internal Medicine; Visit Provider Internal Medicine
DX: E11.65 Type 2 diabetes mellitus with hyperglycemia (principal); J44.9 Chronic obstructive pulmonary disease, unspecified; E78.00 Pure hypercholesterolemia, unspecified; I25.10 Atherosclerotic heart disease of native coronary artery without angina pectoris; F41.1 Generalized anxiety disorder; G47.00 Insomnia, unspecified

== ENCOUNTER → 2024-10-25 16:54 | Outpatient (BNVA) | payer OTHER, SELFPAY | PROVIDERS: PCP Internal Medicine; Visit Provider Internal Medicine | DX: E11.65 Type 2 diabetes mellitus with hyperglycemia (principal); E78.00 Pure hypercholesterolemia, unspecified; E11.9 Type 2 diabetes mellitus without complications; I25.10 Atherosclerotic heart disease of native coronary artery without angina pectoris; F41.1 Generalized anxiety disorder; J44.9 Chronic obstructive pulmonary disease, unspecified; G47.00 Insomnia, unspecified | CPT/HCPCS: 83036; 96127; 99212 ==